=== PATIENT | female | born 1970 | race Caucasian/White ===

== ENCOUNTER 2022-11-02 06:28 | Day surgery (SDC) | payer MEDICAID, SELFPAY ==
[2022-10-09 12:26] VITALS: BMI 37.8
[2022-11-02 06:49] VITALS: BP 142/81; PULSE 86; RESP 16; TEMP 36.1; O2SAT 95
[2022-11-02] MEDS: sodium chloride 0.9% 1,000 ML 30 ML IV (07:04)
[2022-11-02] MEDS: ondansetron 2 mg/ML SDV 2 mL 4 MG IVP (07:07)
[2022-11-02 07:08] LABS: OR HCG Qualitative Urine Negative (Negative)
--- NOTE | 2022-11-02 07:14 | P.ANESASSM_ITS ---
Pre-Anesthetic Assessment Height/Weight: Height 1.55 m Weight 90.718 kg Temp Pulse Resp BP Pulse Ox O2 Del Method 97 F L 86 16 142/81 95 Room Air 11/02/22 06:49 11/02/22 06:49 11/02/22 06:49 11/02/22 06:49 11/02/22 06:49 11/02/22 06:49 Operation Date: 11/02/22 07:30 Proposed Procedures p Colonoscopy 71187,Z12.11(Not Applicable) - Jose Angel Joel DO Familial anesthetic complications: none Was Beta [place] taken within 24 hours: N/A Was Clonidine taken within 24 hours: N/A Last intake: Intake Last Liquid Date 11/01/22 Last Liquid Time 00:00 Last Solid Date 10/31/22 Last Solid Time 21:00 Social Tobacco ( at least a pack a day ) and No alcohol Exam alert and oriented x 3 Airway Submandibular: within normal limits Cervical ROM: within normal limits Mallampati: Class III Dentition: false History/ROS No significant history except as noted Pulmonary Chronic Obstructive Pulmonary Disease and Exertional Dyspnea CV/HEM None reported None reported Hepatic None reported GI Gastroesophageal Reflux Disease Metabolic Morbid Obesity [facility] None reported Neuropsych None reported Anesthetic Plan ASA status: 3 Anesthesia: Anesthesia Evaluation, General and MAC Medications/Allergies Home Medications Medication Instructions Recorded Confirmed Last Taken Type acetaminophen 500 mg tablet 500 mg PO Q6H PRN Pain 08/31/22 11/02/22 Unknown History (Tylenol Extra Strength) ibuprofen 200 mg tablet 200 mg PO Q6H PRN Pain 08/31/22 11/02/22 Unknown History sertraline 100 mg tablet (Zoloft) 100 mg PO DAILY 08/31/22 11/02/22 11/01/22 History montelukast 10 mg tablet 10 mg PO DAILY PRN Allergy Symptoms 10/09/22 11/02/22 Unknown History Allergies Allergy/AdvReac Type Severity Reaction Status Date / Time erythromycin base Allergy ADR-Nausea Verified 11/02/22 06:46 Current Medications Generic Name Dose Route Start Last Admin Trade Name Freq PRN Reason Stop Dose Admin Sodium Chloride 1,000 mls @ 30 mls/hr 11/02/22 06:30 11/02/22 07:04 Sodium Chloride 0.9% IV 11/03/22 06:29 30 mls/hr .Q24H SHILO Administration Ondansetron HCl 4 mg 11/02/22 06:30 11/02/22 07:07 Ondansetron 2 Mg/Ml Sdv 2 Ml IVP 4 mg Q15M PRN Administration Nausea/Vomiting PACU PHASE II Data Anesthesia Cardiac Studies: No Data to Display
--- NOTE | 2022-11-02 07:45 | PM.HP ---
Providers/Chief Complaint Primary Care Provider: MARY Crouch Chief Complaint: Z12.11 History of Present Illness Jennifer Stein is a 52 year old female here for her first colon cancer screening. She had an uncle with colon cancer but otherwise has no family history of colon cancer. She does report some bright red blood per rectum at times. Denies any abdominal pain, nausea, emesis, diarrhea and/or melena. She does think she gets constipated sometimes but has a bowel movement every day Medications/Allergies Home Medications Medication Instructions Recorded Confirmed Last Taken Type acetaminophen 500 mg tablet 500 mg PO Q6H PRN Pain 08/31/22 11/02/22 Unknown History (Tylenol Extra Strength) ibuprofen 200 mg tablet 200 mg PO Q6H PRN Pain 08/31/22 11/02/22 Unknown History sertraline 100 mg tablet (Zoloft) 100 mg PO DAILY 08/31/22 11/02/22 11/01/22 History montelukast 10 mg tablet 10 mg PO DAILY PRN Allergy Symptoms 10/09/22 11/02/22 Unknown History Allergies Allergy/AdvReac Type Severity Reaction Status Date / Time erythromycin base Allergy ADR-Nausea Verified 11/02/22 06:46 Vitals/I&O/Wt Last Vital Signs Temp 97 F L 11/02/22 06:49 Pulse 86 11/02/22 06:49 Resp 16 11/02/22 06:49 BP 142/81 11/02/22 06:49 Pulse Ox 95 11/02/22 06:49 O2 Del Method Room Air 11/02/22 06:49 A&P Assessment and plan (1) Colon cancer screening: Plan Screening colonoscopy The risks and benefits of the procedure, including bleeding, infection, intestinal perforation requiring surgery, missed lesion were explained to the patient. The patient is understanding of the risks and wishes to proceed. Attestations Medical Necessity Statement*: Home Coding Level of Care Code Acute Code for Chg Fwd Diagnoses Colon cancer screening Z12.11
[2022-11-02 08:28] VITALS: BP 107/71; PULSE 88; RESP 16; TEMP 36.1; O2SAT 97
[2022-11-02 08:40] VITALS: BP 116/80; PULSE 78; RESP 16; O2SAT 97
--- NOTE | 2022-11-02 08:50 | ANE.PACU2 ---
Inpatient post-anesthesia follow up: Airway intact: Yes Vital signs: Temperature 97 F Pulse Rate 78 Respiratory Rate 16 Blood Pressure 116/80 Pulse Oximetry 97 Oxygen Delivery Me thod Room Air Oxygen Flow Rate Fraction of Inspir ed Oxygen Hydration adequate: Yes Nausea and vomiting: No Pain level: 1 Mental status: Baseline
[2022-11-07 15:40] LABS: Mismatch Repari Proteins-IHC See Report
== END 2022-11-02 09:11 | disposition home or self-care (01) ==
PROVIDERS: Anesthesiology; PCP Nurse Practitioner Family; Visit Provider Surgery
PROC: 0DJD8ZZ Inspection of Lower Intestinal Tract, Via Natural or Artificial Opening Endoscopic (ICD-10-PCS; CPT 45378; principal; 2022-11-02 07:30)
DX: Z12.11 Encounter for screening for malignant neoplasm of colon (principal); C20 Malignant neoplasm of rectum; F17.210 Nicotine dependence, cigarettes, uncomplicated; J44.9 Chronic obstructive pulmonary disease, unspecified; K21.9 Gastro-esophageal reflux disease without esophagitis; E66.01 Morbid (severe) obesity due to excess calories; Z68.37 Body mass index [BMI] 37.0-37.9, adult
CPT/HCPCS: 45385; 45388; 81025; 84703; 88305; 88341; 88342; 96374; J2405; J2704; J7030

== ENCOUNTER 2022-12-05 09:46 | Outpatient (CLI) | payer MEDICAID, SELFPAY ==
--- NOTE | 2022-12-05 10:15 | MRR_ITS ---
PROCEDURE INFORMATION: Exam: MR Pelvis Without and With Contrast Exam date and time: 12/05/2022 10:29 AM Age: 52 years old Clinical indication: Condition or disease; Location of cancer or specific organ: Cancerous polyps from colonoscopy; Prior surgery; Surgery date: 6+ months; Surgery type: Tubal c section; Additional info: Staging rectal cancer TECHNIQUE: Imaging protocol: Magnetic resonance imaging of the pelvis without and with contrast. Contrast material: MULTIHANCE; Contrast volume: 19 ml; Contrast route: INTRAVENOUS (IV); COMPARISON: No relevant prior studies available. FINDINGS: Intraperitoneal space: No free fluid. Reproductive: Unremarkable right ovary measuring 3.9 x 3.2 x 2.2 cm. Small cyst measuring 2.2 cm noted in the right ovary. Unremarkable left ovary measuring 3.9 x 2.6 x 1.1 cm. Enlarged uterus measuring 13.0 x 9.1 x 9.9 cm. There are 2 large intramural fibroids. The largest fibroid in the anterior wall measures approximally 10.3 x 8.6 x 9.0 cm. The 2nd fibroid along the fundus measures approximately 6.4 x 4.9 x 5.4 cm. The endometrial cavity is displaced posteriorly and superiorly. Nabothian cysts noted. Lymph nodes: No lymphadenopathy. Bones/joints: Degenerative changes of the spine seen. Soft tissues: Unremarkable. Stomach and bowel: No rectal mass identified. MR/MR pelvis wo/w con [id number] IMPRESSION: 1. No rectal mass identified. 2. Uterine fibroids.
== END 2022-12-05 09:47 | disposition home or self-care (01) ==
PROVIDERS: PCP Nurse Practitioner Family; Visit Provider Internal Medicine Medical Oncology
DX: C20 Malignant neoplasm of rectum (principal); D25.9 Leiomyoma of uterus, unspecified; Z98.890 Other specified postprocedural states
CPT/HCPCS: 72197; A9577

== ENCOUNTER 2022-12-13 09:12 | Oncology outpatient (recurring) (ONCR) | payer MEDICAID, SELFPAY | END 2022-12-20 23:59 | disposition home or self-care (01) | LOC: ONCMED 09:13 | PROVIDERS: PCP Nurse Practitioner Family; Visit Provider Internal Medicine Medical Oncology | DX: Z53.9 Procedure and treatment not carried out, unspecified reason (principal) | CPT/HCPCS: 77427 ==

== ENCOUNTER 2023-03-28 07:46 | Day surgery (SDC) | payer MEDICAID, SELFPAY ==
[2023-03-28] VITALS (8 sets, daily range): BP systolic 106–127; BP diastolic 53–77; PULSE 82–99; RESP 17–18; TEMP 36.1–36.2; O2SAT 95–99; BMI 33.6
--- NOTE | 2023-03-28 07:49 | XR_ITS ---
WS: [id number] Portable AP upright chest, 03/28/2023 Clinical Data: Postop Mediport placement Comparison: None. Findings: The infusion catheter enters the left subclavian vein and ends in the superior vena cava. N o nodules, masses or effusions are seen. The heart is normal. The pulmonary vascularity is not increa sed. No pneumonia or pneumothorax is seen. Impression: Satisfactory placement of left infusion catheter.
--- NOTE | 2023-03-28 07:49 | SC_ITS ---
WS: [id number] Insertion left Mediport, 03/28/2023 Clinical Data: Mediport placement Comparison: None. Findings: Dr. Joel inserted a left Mediport through the left subclavian vein ending in the superior vena ca va. Impression: Left Mediport insertion.
[2023-03-28] MEDS: sodium chloride 0.9% 1,000 ML 30 ML IV (08:17)
--- NOTE | 2023-03-28 08:34 | P.ANESASSM_ITS ---
Pre-Anesthetic Assessment Height/Weight: Height 1.55 m Weight 80.739 kg Temp Pulse Resp BP Pulse Ox O2 Del Method 97 F L 82 18 126/72 99 Room Air 03/28/23 07:57 03/28/23 07:57 03/28/23 07:57 03/28/23 07:57 03/28/23 07:57 03/28/23 08:06 Operation Date: 03/28/23 09:35 Proposed Procedures p [id number] port placement C20(Not Applicable) - Jose Angel Joel DO Familial anesthetic complications: none Was Beta [place] taken within 24 hours: N/A Was Clonidine taken within 24 hours: N/A Last intake: Intake Last Liquid Date 03/27/23 Last Liquid Time 23:55 Last Solid Date 03/27/23 Last Solid Time 19:00 Social Tobacco and No alcohol Exam alert, oriented x 3 and regular rate & rhythm Airway Submandibular: within normal limits Cervical ROM: within normal limits Mallampati: Class II Dentition: false Pulmonary Chronic Obstructive Pulmonary Disease GI Colon CA Neuropsych Anxiety and Depression Anesthetic Plan ASA status: 2 Anesthesia: MAC Medications/Allergies Home Medications Medication Instructions Recorded Confirmed Last Taken Type acetaminophen 500 mg tablet 500 mg PO Q6H PRN Pain 08/31/22 03/27/23 Unknown History (Tylenol Extra Strength) ibuprofen 200 mg tablet 200 mg PO Q6H PRN Pain 08/31/22 03/27/23 Unknown History sertraline 100 mg tablet (Zoloft) 100 mg PO DAILY 08/31/22 03/27/23 03/27/23 History calcium carbonate 200 mg calcium 200 mg PO BID PRN Acid Reflux 12/13/22 03/27/23 Unknown History (500 mg) chewable tablet (Tums) hydrocodone 5 mg-acetaminophen 325 1 tab PO Q4H PRN Pain 03/13/23 03/27/23 03/06/23 History mg tablet Allergies Allergy/AdvReac Type Severity Reaction Status Date / Time erythromycin base Allergy ADR-Nausea Verified 03/27/23 13:05 Current Medications Generic Name Dose Route Start Last Admin Trade Name Freq PRN Reason Stop Dose Admin Sodium Chloride 1,000 mls @ 30 mls/hr 03/28/23 08:00 03/28/23 08:17 Sodium Chloride 0.9% IV 03/29/23 07:59 30 mls/hr .Q24H SHILO Administration PFSH Anesthesia Medical History Anxiety and depression Rectal cancer Surgical History (Updated 03/26/23 @ 11:02 by Jose Angel Joel DO) History of total hysterectomy with bilateral salpingo-oophorectomy (BSO) (02/22/23) Robotic assisted total laparoscopic hysterectomy and bilateral salpingo- oophorectomy History of low anterior resection of rectum (02/22/23) Robotic assisted low anterior resection with diverting loop ileostomy History of section History of tubal ligation 1991 History of colonoscopy 2022 Family History Daughter Clotting disorder Platelet disorder Father CAD (coronary artery disease) Cancer in his ear Family/Other Cancer Uncle - colon Aunt - unknown kind Grandmother Cancer unknown Brother Lung disease Other Diabetes Hyperlipidemia Hypertension Stroke Denies family history of Dementia Psychiatric illness Chronic kidney disease (CKD) Suicide Anesthesia complication Bleeding disorder Social History Smoking and tobacco/nicotine status: current every day tobacco/nicotine user cigarettes Packs smoked per day: 1 Years cigarettes smoked: 37 [ Other cigarette details: 1 or more packs per day.] Data Anesthesia Cardiac Studies: No Data to Display
--- NOTE | 2023-03-28 09:24 | W.PM.OPSUD ---
Surgery/Procedure H&P Update DATE OF PROCEDURE: March 28, 2023 DATE H&P PERFORMED: 03/26/23 H&P UPDATE INFORMATION: I have reviewed H&P completed within last 30 days, I have examined patient prior to procedure and No changes to prior documentation PLANNED PROCEDURE: Operation Date: 03/28/23 09:35 Proposed Procedures p [id number] port placement C20(Not Applicable) - Jose Angel Joel DO
[2023-03-28] MEDS: ceFAZolin 2,000 MG in sodium chloride 0.9% (plus) 50 ML 100 MG IV (10:20)
--- NOTE | 2023-03-28 10:51 | PM.OP ---
Operative Report Date of procedure: March 28, 2023 Pre-op diagnosis: Rectal cancer Post-op diagnosis: same Procedure done: Mediport placement Implants: PowerPort Specimens removed/disposition: none Surgeon: Jose Angel Joel DO Anesthesia: MAC and Local Estimated blood loss (mL): 5 Complications: None apparent Brief History: Patient with rectal cancer needs Mediport for chemotherapy access. Risk benefits were explained and documented. Procedure: They put another order I will do right now things the patient was taken to the operating room and placed supine on the operating room table. All bony prominences were padded. She was given IV sedation and monitored throughout the case by the anesthesia personnel. SCDs were placed and turned on. The arms were tucked to the side. Patient received Ancef 2 g preoperatively IV. The bilateral chest wall was prepped and draped in usual sterile fashion using chlorhexidine base prep. Sterile drapes were applied. We did procedure pause prior to beginning. An 18 gauge needle was placed in the left subclavian vein. Dark, nonpulsatile blood was aspirated. A guidewire was placed through the needle centrally toward the atrial/vena caval junction. Fluoroscopy visualized good placement. The needle was removed and the guidewire was clipped to the drape with a hemostat. Further local anesthetic was infiltrated in the soft tissues of the left chest wall and a #15 blade was used to make a horizontal skin incision. A subcutaneous Mediport pocket was created using Bovie cautery, dissecting down through the skin and subcutaneous tissues. Meticulous hemostasis was achieved. The Mediport was sutured in position using 3-0 vicryl suture x2 stitches. A #15 blade was used to make a small skin lindsey around the guidewire insertion area. The Mediport tubing was tunneled through the subcutaneous tissues up to the needle insertion location. A dilator with a peel-away sheath was placed over the guidewire and placed centrally. After measuring the Mediport tubing was cut to length so that the tip would end at the atrial/vena caval junction. The inner cannula and the guidewire were removed, leaving the dilator sheath in place. The Mediport was flushed. The tip of the catheter was inserted through the peel-away sheath and the peel-away sheath removed in the standard fashion. The Mediport was accessed with a straight Flores needle and dark, nonpulsatile blood was aspirated and flushed using heparinized saline to hep-lock the Mediport. Final fluoroscopy visualization showed no kink in the catheter and the tip of the Mediport tubing near the atrial/vena caval junction. Both skin incisions were thoroughly irrigated and suctioned dry. Meticulous hemostasis noted. The dermis was approximated with 3-0 Vicryl in an interrupted fashion. Skin was closed with Dermabond. Patient was awakened from anesthesia and transferred via her cart to the recovery room in stable condition. All needle, sponge, and instrument counts were correct per the operating personnel x2 counts.
[2023-03-28] MEDS: lidocaine-epi 2% 20 mL INJ INJECTION (10:52)
[2023-03-28] MEDS: heparin, porcine 1,000 unit/mL INJ 10 mL 10000 UNIT INJECTION (10:53)
--- NOTE | 2023-03-28 15:46 | ANE.PACU2 ---
Inpatient post-anesthesia follow up: Airway intact: Yes Vital signs: Temperature 97 F Pulse Rate 95 Respiratory Rate 18 Blood Pressure 127/77 Pulse Oximetry 95 Oxygen Delivery Me thod Room Air Oxygen Flow Rate Fraction of Inspir ed Oxygen Hydration adequate: Yes Nausea and vomiting: No Pain level: 2 Mental status: Baseline
== END 2023-03-28 12:35 | disposition home or self-care (01) ==
PROVIDERS: PCP Nurse Practitioner Family; Visit Provider Surgery
PROC: (CPT 36561; principal; 2023-03-28 09:25)
DX: C20 Malignant neoplasm of rectum (principal); J44.9 Chronic obstructive pulmonary disease, unspecified; F17.210 Nicotine dependence, cigarettes, uncomplicated
CPT/HCPCS: 36561; 71045; 76000; 77001; C1788; J0690; J1644; J2704; J3010; J7030

== ENCOUNTER 2023-04-19 10:30 | Oncology outpatient (recurring) (ONCR) | payer MEDICAID, SELFPAY ==
[2023-04-02 07:44] VITALS: BP 133/85; PULSE 87; RESP 16; TEMP 36.2; O2SAT 99
[2023-04-02 08:06] LABS: Basophils % 0.4 %; Eosinophils # 0.2 10^3/uL (0.0-0.8); Eosinophils % 3.9 %; Hematocrit 38.1 % (36-47); Lymphocytes # 1.1 10^3/uL (0.8-4.8); Lymphocytes % 24.8 %; Mean Corpuscular HGB Conc 31.2 g/dL (30-55); Mean Corpuscular Hemoglobin 27.1 pg (27-33); Mean Corpuscular Volume 86.8 fl (85-98); Mean Platelet Volume 10.2 fL (7.4-10.4); Monocytes # 0.4 10^3/uL (0.2-0.9); Monocytes % 9.2 %; Neutrophils % 61.5 %; Nucleated Red Blood Cells % 0 %; Platelet Count 202 10^3/cmm (157-399); Red Blood Count 4.39 10^6/uL (3.85-5.65); Red Cell Distribution Width 14.6 % (12.1-15.1); White Blood Count 4.56 10^3/uL (3.29-11.43)
[2023-04-02 08:27] LABS: Carcinoembryonic Antigen 0.8 ng/mL (0.0-4.7)
[2023-04-02 08:38] LABS: Alanine Aminotransferase 13 U/L (0-33); Albumin Level 4.2 g/dL (3.5-5.2); Alkaline Phosphatase 141 U/L (35-105); Anion Gap 15.3 (5-19); Aspartate Amino Transferase 14 U/L (0-32); Blood Urea Nitrogen 10 mg/dL (6-20); Calcium 9.6 mg/dL (8.5-10.5); Carbon Dioxide 26 mmol/L (22-29); Chloride 102 mmol/L (98-107); Glomerular Filtration Rate 104.2 mL/min (90-130); Glucose 89 mg/dL (65-115); Osmolality Calculated 287 mOsm/kg (285-295); Potassium 4.3 mmol/L (3.5-5.1); Sodium 139 mmol/L (136-145); Total Bilirubin 0.3 mg/dL (0.15-1.2); Total Protein 7.2 g/dL (6.6-8.7)
[2023-04-02] MEDS: dextrose 5% 250 ML 75 ML IV (10:38)
[2023-04-02] MEDS: palonosetron 0.25 mg/5 mL SDV IVP (10:50)
[2023-04-02] MEDS: leucovorin 730 MG in dextrose 5% 250 ML 62.5 MG IV (11:20)
[2023-04-02] MEDS: fluorouraciL 4,350 MG, elastomeric pump 1 PUMP in sodium chloride 0.9% (100 ml) 5 ML IV (14:08)
[2023-04-02 14:12] VITALS: BP 125/77; PULSE 87; RESP 16; TEMP 36.3; O2SAT 98
[2023-04-04 13:00] VITALS: BP 109/70; PULSE 84; RESP 17; TEMP 36.6; O2SAT 97
[2023-04-04] MEDS: sodium chloride 0.9% 1,000 ML 999 ML IV (13:18)
[2023-04-04] MEDS: ondansetron 2 mg/ML SDV 2 mL 8 MG IVP (13:22)
[2023-04-04 15:10] VITALS: BP 101/69; PULSE 80; RESP 17; O2SAT 99
[2023-04-10 10:37] VITALS: BP 124/83; PULSE 96; RESP 16; TEMP 35.9; O2SAT 97
[2023-04-10 10:56] LABS: Basophils % 0.5 %; Eosinophils # 0.1 10^3/uL (0.0-0.8); Hematocrit 40.6 % (36-47); Lymphocytes # 0.9 10^3/uL (0.8-4.8); Mean Corpuscular HGB Conc 32.5 g/dL (30-55); Mean Corpuscular Hemoglobin 27.2 pg (27-33); Mean Corpuscular Volume 83.5 fl (85-98); Mean Platelet Volume 10.4 fL (7.4-10.4); Monocytes # 0.2 10^3/uL (0.2-0.9); Monocytes % 4.4 %; Neutrophils # 2.49 10^3/uL (1.8-7.7); Neutrophils % 67.8 %; Nucleated Red Blood Cells % 0 %; Platelet Count 177 10^3/cmm (157-399); Red Blood Count 4.86 10^6/uL (3.85-5.65); Red Cell Distribution Width 14.1 % (12.1-15.1); White Blood Count 3.67 10^3/uL (3.29-11.43)
[2023-04-10 11:15] LABS: Alanine Aminotransferase 58 U/L (0-33); Albumin Level 4.6 g/dL (3.5-5.2); Alkaline Phosphatase 148 U/L (35-105); Aspartate Amino Transferase 29 U/L (0-32); Blood Urea Nitrogen 18 mg/dL (6-20); Calcium 9.7 mg/dL (8.5-10.5); Carbon Dioxide 26 mmol/L (22-29); Chloride 102 mmol/L (98-107); Globulin 3.4 g/dL (1.3-4.6); Glomerular Filtration Rate 74.7 mL/min (90-130); Glucose 104 mg/dL (65-115); Osmolality Calculated 288 mOsm/kg (285-295); Sodium 138 mmol/L (136-145); Total Bilirubin 0.4 mg/dL (0.15-1.2)
[2023-04-16 08:01] VITALS: BP 130/79; PULSE 90; RESP 16; TEMP 36.1; O2SAT 96
[2023-04-16 08:27] LABS: Basophils % 0.8 %; Eosinophils # 0.2 10^3/uL (0.0-0.8); Eosinophils % 4.7 %; Hematocrit 40.4 % (36-47); Lymphocytes % 27.6 %; Mean Corpuscular HGB Conc 30.9 g/dL (30-55); Mean Corpuscular Hemoglobin 26.8 pg (27-33); Mean Corpuscular Volume 86.5 fl (85-98); Mean Platelet Volume 11.3 fL (7.4-10.4); Monocytes # 0.4 10^3/uL (0.2-0.9); Monocytes % 11.4 %; Neutrophils # 1.99 10^3/uL (1.8-7.7); Neutrophils % 55.5 %; Nucleated Red Blood Cells % 0 %; Platelet Count 190 10^3/cmm (157-399); Red Blood Count 4.67 10^6/uL (3.85-5.65); Red Cell Distribution Width 14.8 % (12.1-15.1); White Blood Count 3.59 10^3/uL (3.29-11.43)
[2023-04-16 08:55] LABS: Alanine Aminotransferase 27 U/L (0-33); Albumin Level 4.4 g/dL (3.5-5.2); Alkaline Phosphatase 143 U/L (35-105); Anion Gap 18.2 (5-19); Aspartate Amino Transferase 17 U/L (0-32); Blood Urea Nitrogen 13 mg/dL (6-20); Calcium 9.7 mg/dL (8.5-10.5); Carbon Dioxide 21 mmol/L (22-29); Chloride 102 mmol/L (98-107); Globulin 3.1 g/dL (1.3-4.6); Glomerular Filtration Rate 87.2 mL/min (90-130); Glucose 90 mg/dL (65-115); Osmolality Calculated 284 mOsm/kg (285-295); Potassium 4.2 mmol/L (3.5-5.1); Sodium 137 mmol/L (136-145); Total Bilirubin 0.3 mg/dL (0.15-1.2); Total Protein 7.5 g/dL (6.6-8.7)
[2023-04-16] MEDS: dextrose 5% 250 ML 75 ML IV (09:25)
[2023-04-16] MEDS: alteplase 1 mg/mL SDV 2 mL 2 MG INTRACATH (09:53)
[2023-04-16] MEDS: palonosetron 0.25 mg/5 mL SDV IVP (10:42)
[2023-04-16] MEDS: fosaprepitant 150 MG in sodium chloride 0.9% 50 ML, sodium chloride 0.9% (100 ml) 100 ML 300 MG IV (10:48)
[2023-04-16] MEDS: leucovorin 730 MG in dextrose 5% 250 ML 80.75 MG IV (12:06)
[2023-04-16] MEDS: fluorouraciL 4,350 MG, elastomeric pump 1 PUMP in sodium chloride 0.9% (100 ml) 5 ML IV (15:11)
[2023-04-16 15:12] VITALS: BP 119/64; PULSE 78; RESP 18; TEMP 36.1; O2SAT 96
[2023-04-18 13:05] VITALS: BP 105/67; PULSE 69; RESP 16; TEMP 36.2; O2SAT 98
[2023-04-19] MEDS: sodium chloride 0.9% 1,000 ML 999 ML IV (10:52)
[2023-04-19] MEDS: ondansetron 2 mg/ML SDV 2 mL 8 MG IVP (11:28)
[2023-04-19 12:28] VITALS: BP 150/73; PULSE 98; RESP 16; TEMP 36.6; O2SAT 99
== END 2023-04-21 23:59 | disposition home or self-care (01) ==
PROVIDERS: Nurse Practitioner Family; PCP Nurse Practitioner Family; Visit Provider Internal Medicine Medical Oncology
DX: C20 Malignant neoplasm of rectum (principal); Z95.828 Presence of other vascular implants and grafts; Z53.9 Procedure and treatment not carried out, unspecified reason
CPT/HCPCS: 36591; 36593; 80053; 82378; 85025; 96360; 96365; 96367; 96368; 96374; 96375; 96413; 96415; 96416; 96417; 96523; J0640; J1100; J1453; J1642; J2405; J2469; J2997; J7030; J7060; J9190; J9263

== ENCOUNTER 2023-05-22 11:00 | Oncology outpatient (recurring) (ONCR) | payer MEDICAID, SELFPAY ==
[2023-05-01 08:51] VITALS: PULSE 80; RESP 16; TEMP 36.1; O2SAT 100
[2023-05-01 09:13] LABS: Basophils % 0.6 %; Eosinophils % 0.3 %; Hematocrit 37.7 % (36-47); Lymphocytes # 0.9 10^3/uL (0.8-4.8); Lymphocytes % 29.7 %; Mean Corpuscular HGB Conc 32.1 g/dL (30-55); Mean Corpuscular Hemoglobin 26.9 pg (27-33); Mean Corpuscular Volume 83.8 fl (85-98); Mean Platelet Volume 11.4 fL (7.4-10.4); Monocytes # 0.4 10^3/uL (0.2-0.9); Monocytes % 13.9 %; Neutrophils # 1.76 10^3/uL (1.8-7.7); Neutrophils % 55.5 %; Nucleated Red Blood Cells % 0 %; Platelet Count 144 10^3/cmm (157-399); Red Cell Distribution Width 15.4 % (12.1-15.1); White Blood Count 3.17 10^3/uL (3.29-11.43)
[2023-05-01 09:30] LABS: Alanine Aminotransferase 18 U/L (0-33); Albumin Level 3.9 g/dL (3.5-5.2); Alkaline Phosphatase 129 U/L (35-105); Anion Gap 14.3 (5-19); Aspartate Amino Transferase 13 U/L (0-32); Blood Urea Nitrogen 12 mg/dL (6-20); Calcium 9.5 mg/dL (8.5-10.5); Carbon Dioxide 22 mmol/L (22-29); Chloride 104 mmol/L (98-107); Glomerular Filtration Rate 74.7 mL/min (90-130); Glucose 95 mg/dL (65-115); Osmolality Calculated 282 mOsm/kg (285-295); Potassium 4.3 mmol/L (3.5-5.1); Sodium 136 mmol/L (136-145); Total Bilirubin 0.2 mg/dL (0.15-1.2); Total Protein 6.9 g/dL (6.6-8.7)
[2023-05-01] MEDS: sodium chloride 0.9% 1,000 ML 999 ML IV (10:25)
[2023-05-08 09:27] LABS: Basophils % 0.9 %; Eosinophils # 0.1 10^3/uL (0.0-0.8); Eosinophils % 3.1 %; Hematocrit 36.1 % (36-47); Lymphocytes # 0.9 10^3/uL (0.8-4.8); Mean Corpuscular HGB Conc 32.1 g/dL (30-55); Mean Corpuscular Hemoglobin 26.8 pg (27-33); Mean Corpuscular Volume 83.4 fl (85-98); Mean Platelet Volume 10.1 fL (7.4-10.4); Monocytes # 0.4 10^3/uL (0.2-0.9); Monocytes % 11.3 %; Neutrophils # 1.85 10^3/uL (1.8-7.7); Neutrophils % 56.8 %; Nucleated Red Blood Cells % 0 %; Platelet Count 220 10^3/cmm (157-399); Red Blood Count 4.33 10^6/uL (3.85-5.65); Red Cell Distribution Width 15.9 % (12.1-15.1); White Blood Count 3.26 10^3/uL (3.29-11.43)
[2023-05-08 09:42] LABS: Alanine Aminotransferase 10 U/L (0-33); Albumin Level 3.8 g/dL (3.5-5.2); Alkaline Phosphatase 125 U/L (35-105); Anion Gap 15.3 (5-19); Aspartate Amino Transferase 12 U/L (0-32); Blood Urea Nitrogen 6 mg/dL (6-20); Calcium 9.2 mg/dL (8.5-10.5); Carbon Dioxide 25 mmol/L (22-29); Chloride 105 mmol/L (98-107); Globulin 2.9 g/dL (1.3-4.6); Glomerular Filtration Rate 87.2 mL/min (90-130); Glucose 87 mg/dL (65-115); Osmolality Calculated 289 mOsm/kg (285-295); Potassium 4.3 mmol/L (3.5-5.1); Sodium 141 mmol/L (136-145); Total Bilirubin 0.2 mg/dL (0.15-1.2); Total Protein 6.7 g/dL (6.6-8.7)
[2023-05-22 11:56] LABS: Basophils # 0.1 10^3/uL (0.0-0.1); Basophils % 0.8 %; Eosinophils # 0.2 10^3/uL (0.0-0.8); Eosinophils % 2.4 %; Hematocrit 37.4 % (36-47); Lymphocytes # 1.1 10^3/uL (0.8-4.8); Lymphocytes % 17.2 %; Mean Corpuscular HGB Conc 32.4 g/dL (30-55); Mean Corpuscular Hemoglobin 26.8 pg (27-33); Mean Corpuscular Volume 82.7 fl (85-98); Mean Platelet Volume 9.6 fL (7.4-10.4); Monocytes # 0.4 10^3/uL (0.2-0.9); Monocytes % 6.7 %; Neutrophils % 72.3 %; Nucleated Red Blood Cells % 0 %; Platelet Count 209 10^3/cmm (157-399); Red Blood Count 4.52 10^6/uL (3.85-5.65); Red Cell Distribution Width 16.8 % (12.1-15.1); White Blood Count 6.23 10^3/uL (3.29-11.43)
[2023-05-22 12:15] LABS: Alanine Aminotransferase 9 U/L (0-33); Albumin Level 3.9 g/dL (3.5-5.2); Alkaline Phosphatase 143 U/L (35-105); Anion Gap 16.1 (5-19); Aspartate Amino Transferase 12 U/L (0-32); Blood Urea Nitrogen 10 mg/dL (6-20); Calcium 9.3 mg/dL (8.5-10.5); Carbon Dioxide 21 mmol/L (22-29); Chloride 102 mmol/L (98-107); Globulin 3.2 g/dL (1.3-4.6); Glomerular Filtration Rate 104.2 mL/min (90-130); Glucose 96 mg/dL (65-115); Osmolality Calculated 279 mOsm/kg (285-295); Potassium 4.1 mmol/L (3.5-5.1); Sodium 135 mmol/L (136-145); Total Bilirubin 0.2 mg/dL (0.15-1.2); Total Protein 7.1 g/dL (6.6-8.7)
== END 2023-05-22 23:59 | disposition home or self-care (01) ==
PROVIDERS: Nurse Practitioner Family; PCP Nurse Practitioner Family; Visit Provider Internal Medicine Medical Oncology
DX: Z53.9 Procedure and treatment not carried out, unspecified reason (principal); C20 Malignant neoplasm of rectum
CPT/HCPCS: 36591; 80053; 85025; 96360; J1642; J7030

== ENCOUNTER 2023-08-15 12:00 | Oncology outpatient (recurring) (ONCR) | payer MEDICAID, SELFPAY ==
[2023-07-24 09:16] LABS: Basophils % 0.7 %; Eosinophils # 0.2 10^3/uL (0.0-0.8); Eosinophils % 5.2 %; Hematocrit 37.6 % (36-47); Lymphocytes # 1.1 10^3/uL (0.8-4.8); Lymphocytes % 25.5 %; Mean Corpuscular HGB Conc 32.2 g/dL (30-55); Mean Corpuscular Hemoglobin 29.2 pg (27-33); Mean Corpuscular Volume 90.8 fl (85-98); Mean Platelet Volume 10.1 fL (7.4-10.4); Monocytes # 0.3 10^3/uL (0.2-0.9); Monocytes % 7.5 %; Neutrophils % 60.9 %; Nucleated Red Blood Cells % 0 %; Platelet Count 169 10^3/cmm (157-399); Red Blood Count 4.14 10^6/uL (3.85-5.65); Red Cell Distribution Width 22.5 % (12.1-15.1); White Blood Count 4.27 10^3/uL (3.29-11.43)
[2023-07-24 09:45] LABS: Carcinoembryonic Antigen 1.3 ng/mL (0.0-4.7)
[2023-07-24 09:56] LABS: Alanine Aminotransferase 8 U/L (0-33); Albumin Level 4.1 g/dL (3.5-5.2); Alkaline Phosphatase 120 U/L (35-105); Aspartate Amino Transferase 14 U/L (0-32); Blood Urea Nitrogen 13 mg/dL (6-20); Calcium 9.1 mg/dL (8.5-10.5); Carbon Dioxide 24 mmol/L (22-29); Chloride 108 mmol/L (98-107); Globulin 2.8 g/dL (1.3-4.6); Glomerular Filtration Rate 87.2 mL/min (90-130); Glucose 92 mg/dL (65-115); Osmolality Calculated 292 mOsm/kg (285-295); Sodium 141 mmol/L (136-145); Total Bilirubin 0.3 mg/dL (0.15-1.2); Total Protein 6.9 g/dL (6.6-8.7)
[2023-07-24 09:58] LABS: Anion Gap 13.4 (5-19); Potassium 4.4 mmol/L (3.5-5.1)
[2023-08-15 12:47] LABS: Basophils % 0.8 %; Eosinophils # 0.2 10^3/uL (0.0-0.8); Eosinophils % 3.5 %; Hematocrit 39.1 % (36-47); Lymphocytes # 1.2 10^3/uL (0.8-4.8); Lymphocytes % 25.3 %; Mean Corpuscular HGB Conc 32.7 g/dL (30-55); Mean Corpuscular Hemoglobin 30.8 pg (27-33); Mean Platelet Volume 10.2 fL (7.4-10.4); Monocytes # 0.3 10^3/uL (0.2-0.9); Monocytes % 6.8 %; Neutrophils # 3.04 10^3/uL (1.8-7.7); Neutrophils % 63.2 %; Nucleated Red Blood Cells % 0 %; Platelet Count 187 10^3/cmm (157-399); Red Blood Count 4.16 10^6/uL (3.85-5.65); Red Cell Distribution Width 21.3 % (12.1-15.1); White Blood Count 4.82 10^3/uL (3.29-11.43)
[2023-08-15 13:50] LABS: Alanine Aminotransferase 6 U/L (0-33); Albumin Level 4.3 g/dL (3.5-5.2); Alkaline Phosphatase 129 U/L (35-105); Anion Gap 13.8 (5-19); Aspartate Amino Transferase 11 U/L (0-32); Blood Urea Nitrogen 10 mg/dL (6-20); Calcium 9.3 mg/dL (8.5-10.5); Carbon Dioxide 26 mmol/L (22-29); Chloride 104 mmol/L (98-107); Creatinine Clr Calc Pharmacy 74.6209; Globulin 3.3 g/dL (1.3-4.6); Glomerular Filtration Rate 74.7 mL/min (90-130); Glucose 111 mg/dL (65-115); Osmolality Calculated 290 mOsm/kg (285-295); Potassium 3.8 mmol/L (3.5-5.1); Sodium 140 mmol/L (136-145); Total Bilirubin 0.3 mg/dL (0.15-1.2); Total Protein 7.6 g/dL (6.6-8.7)
== END 2023-08-20 23:59 | disposition home or self-care (01) ==
PROVIDERS: PCP Nurse Practitioner Family; Visit Provider Internal Medicine Medical Oncology
DX: Z53.9 Procedure and treatment not carried out, unspecified reason (principal); C20 Malignant neoplasm of rectum
CPT/HCPCS: 36415; 80053; 82378; 85025

== ENCOUNTER 2023-09-05 08:45 | Oncology outpatient (recurring) (ONCR) | payer MEDICAID, SELFPAY ==
[2023-09-05 09:35] LABS: Basophils # 0.1 10^3/uL (0.0-0.1); Basophils % 1.5 %; Eosinophils # 0.2 10^3/uL (0.0-0.8); Hematocrit 47.2 % (36-47); Lymphocytes # 1.2 10^3/uL (0.8-4.8); Lymphocytes % 24.5 %; Mean Corpuscular HGB Conc 29.7 g/dL (30-55); Mean Corpuscular Hemoglobin 31.1 pg (27-33); Mean Corpuscular Volume 104.9 fl (85-98); Mean Platelet Volume 10.1 fL (7.4-10.4); Monocytes # 0.4 10^3/uL (0.2-0.9); Monocytes % 8.9 %; Neutrophils # 2.89 10^3/uL (1.8-7.7); Neutrophils % 59.9 %; Nucleated Red Blood Cells % 0 %; Platelet Count 200 10^3/cmm (157-399); Red Cell Distribution Width 20.9 % (12.1-15.1); White Blood Count 4.82 10^3/uL (3.29-11.43)
== END 2023-09-20 23:59 | disposition home or self-care (01) ==
PROVIDERS: Nurse Practitioner Family; PCP Nurse Practitioner Family; Visit Provider Internal Medicine Medical Oncology
DX: C20 Malignant neoplasm of rectum (principal)
CPT/HCPCS: 36415; 85025

== ENCOUNTER 2023-10-14 11:30 | Oncology outpatient (recurring) (ONCR) | payer MEDICAID, SELFPAY ==
--- NOTE | 2023-10-03 09:30 | CT_ITS ---
WS: [id number] CT CHEST, ABDOMEN, AND PELVIS TECHNIQUE: Contrast-enhanced CT of the chest, abdomen, and pelvis with coronal and sagittal reformatt ed images. CLINICAL INFORMATION: restaging COMPARISON: None. DLP: 828.[address] scans at [facility] use at least one of these dose optimization techniques: automated e xposure control; mA and/or kV adjustment per patient size (includes targeted exams where dose is matc hed to clinical indication); or iterative reconstruction. CT CHEST: Lungs are well aerated. No acute pulmonary infiltrates. No focal pneumonia or pleural fluid. Normal c aliber thoracic aorta. Proximal main pulmonary arteries appear normal. Normal caliber descending thor acic aorta. Normal caliber abdominal aorta. No mediastinal or hilar lymphadenopathy. No axillary lymphadenopathy. Small esophageal hiatal hernia. Small RIGHT thyroid nodule measuring [address] ABDOMEN AND PELVIS:Expansile elongated slightly expansile filling defect in the LEFT ovarian vein extending from proximal to the mid vein compatible with recent gonadal vein thrombus. Small amount o f surrounding induration distally suspicious for thrombophlebitis. LEFT renal vein and IVC are patent . Chronic spondylolysis L5-S1 with grade 1-2 anterolisthesis. Mild diffuse fatty infiltration of the li jennifer. 2 small low-attenuation lesions in the LEFT hepatic lobe largest measuring 9 mm compatible with hepatic cyst. The smaller lesion at 5 mm too small to definitively characterize. Recommend 3-month fo llow-up contrast-enhanced CT abdomen pelvis. Mild splenomegaly measuring 13.7 cm [id number]. Mild hepatomegaly. Small esophageal hernia. Normal portal vein and splenic vein. Normal gallbladder. Celiac and SMA are patent. Mild aortic calcification. Adrenal glands are normal. Normal renal parenc hymal enhancement. Tiny renal cysts. No abdominal or pelvic lymphadenopathy. Ileostomy RIGHT lower quadrant. Prior postoperative changes rectal anastomosis. Tiny amount of free fluid in the pelvis. No evidence of recurrent mass or lesion at the anastomosis. Ileostomy and stoma are patent. CT/CT chest abdpel w/*[id number] IMPRESSION: 1. No suspicious chest abnormalities. 2. Small RIGHT thyroid nodule measuring 5 mm. 3. Mild hepatomegaly and splenomegaly 4. Small LEFT hepatic cyst measuring 9 mm. Additional low-attenuation lesion a lso likely represents a cyst but too small to definitively characterize measuri ng 5 mm. This can be followed up in 3 months with contrast-enhanced CT abdomen pelvis. 5. Ileostomy appears patent. 6. Rectal anastomosis. No evidence of recurrent disease at the anastomosis. 7. 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 LEFT carly l vein appears patent. Recommend correlation with anticoagulation status and hi story of pulmonary embolism 8. Chronic spondylolysis L5 on S1 with grade 1-[address] Watkins at 10/04/2023 10:36 AM.
[2023-10-03] MEDS: iohexol 350 mg/mL 500 mL Btl (per mL) IV (10:21)
[2023-10-03] MEDS: iohexol 350 mg/mL 500 mL Btl (per mL) PO (10:21)
[2023-10-14 11:49] LABS: Basophils # 0.1 10^3/uL (0.0-0.1); Eosinophils # 0.2 10^3/uL (0.0-0.8); Eosinophils % 2.8 %; Hematocrit 40.5 % (36-47); Lymphocytes # 1.4 10^3/uL (0.8-4.8); Lymphocytes % 24.8 %; Mean Corpuscular HGB Conc 32.1 g/dL (30-55); Mean Corpuscular Hemoglobin 29.2 pg (27-33); Mean Platelet Volume 10.1 fL (7.4-10.4); Monocytes # 0.4 10^3/uL (0.2-0.9); Monocytes % 7.1 %; Neutrophils # 3.73 10^3/uL (1.8-7.7); Neutrophils % 64.1 %; Nucleated Red Blood Cells % 0 %; Platelet Count 243 10^3/cmm (157-399); Red Blood Count 4.45 10^6/uL (3.85-5.65); Red Cell Distribution Width 16.9 % (12.1-15.1); White Blood Count 5.81 10^3/uL (3.29-11.43)
[2023-10-14 12:18] LABS: Carcinoembryonic Antigen 1.2 ng/mL (0.0-4.7)
[2023-10-14 12:41] LABS: Alanine Aminotransferase 7 U/L (0-33); Albumin Level 4.2 g/dL (3.5-5.2); Alkaline Phosphatase 134 U/L (35-105); Anion Gap 16.5 (5-19); Aspartate Amino Transferase 11 U/L (0-32); Blood Urea Nitrogen 10 mg/dL (6-20); Calcium 9.2 mg/dL (8.5-10.5); Carbon Dioxide 23 mmol/L (22-29); Chloride 103 mmol/L (98-107); Globulin 3.2 g/dL (1.3-4.6); Glomerular Filtration Rate 87.2 mL/min (90-130); Glucose 87 mg/dL (65-115); Osmolality Calculated 284 mOsm/kg (285-295); Potassium 4.5 mmol/L (3.5-5.1); Sodium 138 mmol/L (136-145); Total Bilirubin 0.2 mg/dL (0.15-1.2); Total Protein 7.4 g/dL (6.6-8.7)
== END 2023-10-20 23:59 | disposition home or self-care (01) ==
PROVIDERS: PCP Nurse Practitioner Family; Visit Provider Nurse Practitioner Family
DX: C20 Malignant neoplasm of rectum (principal); Z53.9 Procedure and treatment not carried out, unspecified reason
CPT/HCPCS: 36415; 71260; 74177; 80053; 82378; 85025; Q9967

== ENCOUNTER 2023-11-20 10:38 | Oncology outpatient (recurring) (ONCR) | payer MEDICAID, SELFPAY ==
--- NOTE | 2023-10-28 15:45 | N.ONRAD NP_ITS ---
Radiation Oncology New Patient Visit Patient: Jennifer Stein MR#: [id number] : 1970> Age: 53> Sex: Female> Account #: Dictated by: Velasquez Wayne DO/MICHELINE/KAMARI Date of Service: 10/28/2023 Referring Physician(s) : Andre Watkins M.D. , Yogi Billy MD, Stacey Jolly, MARY Diagnosis: C20 Rectal Cancer, C77.[address] HISTOPATHOLOGY: MD-ADENOCARCINOMA distal rectum, initially treated with transanal microsurgery for the rectal polyp stage T2 NX, followed by robotic assisted LAR with diverting loop ileostomy with residual focus of MD-adenocarcinoma, 1.6 cm, with extension into pericolonic fat measuring 0.17 mm, + CLSI, - PNI, radial margin > 1.5 cm, peripheral margin at least 1 cm, 08/07 LN + (-RICKIE), - tumor deposit, 2/8 cycles FOLFOX- LD 04/16/2023 followed by 6 cycles of Xeloda 14 days on 7 days off for total 21-day cycle, LD- 09/06/2023, 30# Wt loss, Minimal bleeding, , CEA 10/14/2023 1.2, 38pysh, Fatigue, Moderate Treatment anxiety. STAGE: III- [id number] Radiotherapy to date: Summary > NO prior radiation therapy. Chief Complaint: Patient has rectal cancer and is here to discuss adjuvant XRT. History of Present Illness: This is a pleasant 53-year-old female with a diagnosis of rectal cancer as noted above. She initially presented back in the summer 2022 with some intermittent rectal bleeding. Colonoscopy on 11/02/2022 noted multiple polyps in the distal rectum with a large polyp returning well-differentiated adenocarcinoma. Patient underwent transanal surgery with excision of the polyp which returned a pathologic stage and T2 NX M0. Patient underwent laparoscopic robotic assisted LAR with placement of a diverting loop colostomy. She also underwent ZIA/BSO. Pathology of the hysterectomy specimen was benign. The rectal component showed residual focus of adenocarcinoma with extension into pericolic pericolonic fat measuring 0.167 mm. Rectal mass itself measured 1.6 cm. There was 4 out of 18 lymph nodes involved with no areas of extracapsular extension. Pathologic staging was noted to be T3 N2a M0. Adjuvant chemotherapy consisted of 2/8 cycles of FOLFOX with the last dose being 04/16/2023. She then underwent 6 cycles of Xeloda consisting of twice daily treatment for 14 days followed by 7-day break. The last cycle was on 09/06/2023. No availability of preoperative CEA. CEA on 10/14/[address] C/A/P on 10/03/2023 showed no evidence for recurrent or metastatic disease. There was an expansile while elongated thrombus involving the left ovarian vein extending from the proximal to mid vein with a small amount of surrounding thrombophlebitis. She was started on Eliquis and remains on that at the present time. Current Medications: cetaminophen (Tylenol Extra Strength) 500 mg PO Q6H PRNapixaban (Eliquis) 5 mg PO BIDcalcium carbonate (Tums) 200 mg PO BID PRNdexamethasone 1 tablet BID x2 days, then 1 tab daily x2 days after chemotherapydronabinol (Marinol) 5 mg PO BIDhydrocodone-acetaminophen 5-325 mg 1 tab PO Q4H PRNibuprofen 200 mg PO Q6H PRNlidocaine-prilocaine 2.5-2.5 % Apply quarter size amount 30-45 minutes prior to port access, cover with cellophanelorazepam 0.5 - 1 mg (0.5 - 1 x 1 mg) PO Q6H PRNondansetron 8 mg PO Q8H PRNprochlorperazine maleate (Compazine) 10 mg PO Q6H PRNsertraline (Zoloft) 100 mg PO DAILY Allergies: erythromycin base Allergy (Verified 10/14/23 12:46) ADR-Nausea Medical History: No history of collagen vascular disease. No previous radiation therapy. Patient is ACTIVE SMOKER with [id number] smoking history. Surgical History: History of total hysterectomy with bilateral salpingo-oophorectomy (BSO) (02/22/23) Robotic assisted total laparoscopic hysterectomy and bilateral salpingo-oophorectomy History of low anterior resection of rectum (02/22/23) Robotic assisted low anterior resection with diverting loop ileostomy History of sectionHistory of tubal ligation 1991 History of colonoscopy 2022 Port-A-Cath in place Family History: Daughter Clotting disorder Platelet disorder Father CAD (coronary artery disease) Cancer in his ear Family/Other Cancer Uncle - colon Aunt - unknown kind Grandmother Cancer unknown Brother Lung disease Other Diabetes Hyperlipidemia Hypertension Stroke Denies family history of Dementia Psychiatric illness Chronic kidney disease (CKD) Suicide Anesthesia complication Bleeding disorder Social History: Smoking and tobacco/nicotine status: current every day tobacco/nicotine user cigarettes. ONE Pack smoked per day: 1 Years cigarettes smoked: 38 [ Other cigarette details: 1 or more packs per day.] Current Complaints / Review of Systems: . ABOVE Vital Signs: Performed on 10/28/2023 11:13 AM BMI - 30.459 kg/m2 (high), Height - 61 in, Weight - 161.2 lbs, Temperature - 97.4 f, Pulse - 81 /min, Respiration - 17 /min, O2 Sat - 100 %, Pain - 0, Fatigue - 0 and BP - 115/ 76 mm(hg). Physical Exam: 53-year-old female who is alert and oriented and answers questions appropriately. She is quite anxious. Head is normocephalic without masses. Neck is supple with no cervical lymphadenopathy. Chest: lungs clear to auscultation. No intercostal retraction. Abdomen: soft with no rebound. Ileostomy noted just right of midline. Surgical scar appreciated. Extremities intact x 4. Negative Homans' sign. Vertebral exam: no bony tenderness noted. Rectal exam: deferred per patient's request. Performance Status: KPS 90 Pathology: ABOVE Imaging: See HPI Impression: MD-ADENOCARCINOMA distal rectum Initially treated with transanal microsurgery for the rectal polyp stage T2 NX Robotic assisted LAR with diverting loop ileostomy with residual focus of MD-adenocarcinoma, 1.6 cm, with extension into pericolonic fat measuring 0.17 mm + CLSI - PNI Radial margin > 1.5 cm, Peripheral margin at least 1 cm 08/07 LN + (-RICKIE) - tumor deposit 2/8 cycles FOLFOX- LD 04/16/2023 6 cycles of Xeloda 14 days on 7 days off for total 21-day cycle, LD- 09/06/2023 30# Wt loss Minimal bleeding CEA 10/14/2023 1.2 38pysh Fatigue Moderate Treatment anxiety Plan: Options were discussed in detail with the patient Patient desires to think about adjuvant chemo RT at this time. She will convey her decision in the next few weeks. Adjuvant XRT was recommended at 4500 cGy in conventional fractionation along with radiosensitizing doses of Xeloda Signed by: 10/28/2023 3:43:59 PM <<Signature on File>> Time spent with patient: 65 minutes CPT Code: CPT Code:
--- NOTE | 2023-11-12 08:36 | ONCRAD EPV_ITS ---
Radiation Oncology Established Patient Note Patient: Jennifer Stein MR#: [id number] : 1970 Attending Physician: Dr. Angelita Bravo Date of Service: 11/11/2023 Referring Physician(s) : Andre Watkins M.D. 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 Review of Systems: Patient is here today prior to starting treatment as she had several questions that were still not answered after she had her initial encounter. She was initially somewhat opposed to proceeding with additional treatment. She had felt initially that her treatment was done backwards. I reassured her that in the past patients were actually treated with surgery first followed by postop radiation and chemotherapy. That this treatment was no different in terms of cure rates it just allowed us to delineate patients that did not require radiation and chemotherapy. We reviewed again the risks and side effects of the radiation both acute and long-term. We discussed the simulation process. We reviewed the daily treatment regiment. At this point she has agreed to proceed with treatment. All of her questions were answered. I gave her a list of items to get that we will help her proceed with managing her symptoms as we go through treatment. Physical Exam: Unchanged Imaging: Radiation therapy imaging related to accurate target localization (i.e. KV, MV and CBCT) was reviewed. Appropriate changes, if any, were made to ensure treatment accuracy. Plan: Will schedule her for simulation and wait to start her treatments until she is received her Xeloda. Time spent with patient: 30 CPT Code: CPT Code:
--- NOTE | 2023-11-19 13:21 | ONCRAD TMN_ITS ---
Radiation Oncology Weekly Treatment Management Patient: Jennifer Stein MR#: [id number] : 1970 Attending Physician: Dr. Angelita Bravo Date of Service: 11/19/2023 Fractions: 1 out of 25 Referring Physician(s) : Andre Watkins M.D. 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 ID: [id number], Energy: 6X, Dose/Fx (cGy): 180, #Fx: , Dose Correction (cGy): 0, Total Dose Delivered (cGy): 180, Start Date: 11/19/2023, Elapsed Days: 0 Reason for visit: The patient is being seen today as part of their regularly scheduled weekly on treatment visits to assess for acute toxicities from radiotherapy. Review of Systems: Patient had no additional questions. We did talk about some different things she can try to eat as her taste has been affected as it was previously by the is a [place] Vital Signs: Performed on 11/19/2023 11:14 AM BMI - 30.27 kg/m2 (high), Height - 61 in, Weight - 160.2 lbs, Temperature - 97.5 f, Pulse - 78 /min, Respiration - 18 /min, O2 Sat - 98 %, Pain - 0, Fatigue - 0 and BP - 113/ 70 mm(hg). Physical Exam: No changes on exam Imaging: Radiation therapy imaging related to accurate target localization (i.e. KV, MV and CBCT) was reviewed. Appropriate changes, if any, were made to ensure treatment accuracy. Plan: Will continue with treatments as planned signed by: Dr. Angelita Bravo 11/19/2023 1:19:21 PM
== END 2023-11-20 23:59 | disposition home or self-care (01) ==
PROVIDERS: PCP Nurse Practitioner Family; Visit Provider Nurse Practitioner Family
DX: Z51.0 Encounter for antineoplastic radiation therapy (principal); C77.5 Secondary and unspecified malignant neoplasm of intrapelvic lymph nodes; C20 Malignant neoplasm of rectum
CPT/HCPCS: 77300; 77301; 77334; 77338; 77386; 77470; 99024

== ENCOUNTER 2023-12-09 10:30 | Oncology outpatient (recurring) (ONCR) | payer MEDICAID, SELFPAY ==
--- NOTE | 2023-11-25 11:21 | ONCRAD TMN_ITS ---
Radiation Oncology Weekly Treatment Management Patient: Sarita Suárez MR#: [id number] : 1970> Attending Physician: Dr. Angelita Bravo Date of Service: 11/25/2023 Fractions: 5 out of 25 Referring Physician(s) : Andre Watkins M.D. 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 ID: [id number], Energy: 6X, Dose/Fx (cGy): 180, #Fx: , Dose Correction (cGy): 0, Total Dose Delivered (cGy): 900, Start Date: 11/19/2023, Elapsed Days: 6 Reason for visit: The patient is being seen today as part of their regularly scheduled weekly on treatment visits to assess for acute toxicities from radiotherapy. Review of Systems: Patient had increased difficulty with nausea and vomiting last week she vomited at least 4 times on Saturday. She has started to contemplate taking her Xeloda after her treatment in the morning as her nausea medicine makes her sleepy. She drives herself and has no one else to drive her. Vital Signs: Performed on 11/25/2023 11:09 AM BMI - 29.476 kg/m2 (high), Height - 61 in, Weight - 156 lbs, Temperature - 96.8 f, Pulse - 90 /min, Respiration - 17 /min, O2 Sat - 96 %, Pain - 0 and BP - 131/ 81 mm(hg). Physical Exam: No changes on exam Imaging: Radiation therapy imaging related to accurate target localization (i.e. KV, MV and CBCT) was reviewed. Appropriate changes, if any, were made to ensure treatment accuracy. Plan: I have asked her to go ahead and give that a try with changing up when she takes the Xeloda. Will move her appointment earlier in the morning so that she can get home earlier to take the medication and her nausea medication. Apparently she had significant toxicity from this a lot of the last time and was on multiple nausea medications. She is currently just using the Zofran. Signed by: Dr. Angelita Bravo 11/25/2023 11:20:30 AM
[2023-11-28 10:18] LABS: Basophils % 0.7 %; Eosinophils # 0.4 10^3/uL (0.0-0.8); Eosinophils % 7.6 %; Hematocrit 49.1 % (36-47); Lymphocytes # 0.9 10^3/uL (0.8-4.8); Lymphocytes % 16.3 %; Mean Corpuscular Volume 87.8 fl (85-98); Monocytes # 0.5 10^3/uL (0.2-0.9); Monocytes % 9.4 %; Neutrophils % 65.5 %; Nucleated Red Blood Cells % 0 %; Platelet Count 245 10^3/cmm (157-399); Red Blood Count 5.59 10^6/uL (3.85-5.65); Red Cell Distribution Width 15.7 % (12.1-15.1); White Blood Count 5.51 10^3/uL (3.29-11.43)
[2023-11-28 10:38] LABS: Carcinoembryonic Antigen 1.2 ng/mL (0.0-4.7)
[2023-11-28 10:49] LABS: Alanine Aminotransferase 12 U/L (0-33); Albumin Level 4.7 g/dL (3.5-5.2); Alkaline Phosphatase 143 U/L (35-105); Anion Gap 20.9 (5-19); Aspartate Amino Transferase 12 U/L (0-32); Blood Urea Nitrogen 42 mg/dL (6-20); Calcium 9.8 mg/dL (8.5-10.5); Carbon Dioxide 13 mmol/L (22-29); Chloride 102 mmol/L (98-107); Globulin 3.5 g/dL (1.3-4.6); Glomerular Filtration Rate 42.7 mL/min (90-130); Glucose 93 mg/dL (65-115); Osmolality Calculated 282 mOsm/kg (285-295); Potassium 4.9 mmol/L (3.5-5.1); Sodium 131 mmol/L (136-145); Total Bilirubin 0.3 mg/dL (0.15-1.2); Total Protein 8.2 g/dL (6.6-8.7)
[2023-11-28] MEDS: sodium chloride 0.9% 1,000 ML 999 ML IV (11:59)
[2023-11-28 12:55] LABS: Magnesium 2.5 mg/dL (1.7-2.3)
[2023-11-28 13:00] VITALS: BP 102/68; PULSE 80; RESP 17; TEMP 36.2; O2SAT 97
[2023-12-02 11:11] VITALS: BP 106/72; PULSE 72; RESP 16; TEMP 36.2; O2SAT 96
[2023-12-02] MEDS: sodium chloride 0.9% 1,000 ML 999 ML IV (11:17)
[2023-12-02] MEDS: ondansetron 2 mg/ML SDV 2 mL 8 MG IVP (11:18)
--- NOTE | 2023-12-03 10:47 | ONCRAD TMN_ITS ---
Radiation Oncology Weekly Treatment Management Patient: Sarita Rodriguez> MR#: [id number] : 1970> Attending Physician: Dr. Angelita Bravo Date of Service: 12/03/2023 Fractions: 10 out of 25 Referring Physician(s) : Andre Watkins M.D. 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 ID: [id number], Energy: 6X, Dose/Fx (cGy): 180, #Fx: , Dose Correction (cGy): 0, Total Dose Delivered (cGy): 1,800, Start Date: 11/19/2023, Elapsed Days: 14 Reason for visit: The patient is being seen today as part of their regularly scheduled weekly on treatment visits to assess for acute toxicities from radiotherapy. Review of Systems: Since Saturday the patient has been unable to keep anything down. Yesterday she got a liter of normal saline along with IV Zofran. She said she is only been able to get an ice chips since yesterday. She is down 4 pounds today. Vital Signs: Performed on 12/03/2023 10:10 AM BMI - 28.796 kg/m2 (high), Height - 61 in, Weight - 152.4 lbs, Temperature - 96.1 f, Pulse - 90 /min, Respiration - 16 /min, O2 Sat - 96 %, Pain - 1, Fatigue - 5 and BP - 107/ 76 mm(hg). Physical Exam: She seems a little bit better on exam today and that she is not so ataxic when she walks. Yesterday she was lightheaded enough that her balance was off. Imaging: Radiation therapy imaging related to accurate target localization (i.e. KV, MV and CBCT) was reviewed. Appropriate changes, if any, were made to ensure treatment accuracy. Plan: I talked with her today about getting a liter of fluid every day this week along with the IV Zofran. She is agreed to this. She says she is just so thirsty and hungry but she cannot keep anything down. She tried 2 ounces of milk yesterday with her medication and this came back up. At this point we will give her fluids all week with her Zofran and hopefully we can break her cycle. Signed by: Dr. Angelita Bravo 12/03/2023 10:46:33 AM
[2023-12-03] MEDS: sodium chloride 0.9% 1,000 ML 999 ML IV (11:04)
[2023-12-03] MEDS: ondansetron 2 mg/ML SDV 2 mL 8 MG IVP (11:04)
[2023-12-03 16:04] VITALS: BP 100/62; PULSE 68; RESP 16; TEMP 36.5; O2SAT 96
[2023-12-04 14:39] LABS: Basophils % 0.7 %; Eosinophils # 0.2 10^3/uL (0.0-0.8); Hematocrit 41.3 % (36-47); Lymphocytes # 0.5 10^3/uL (0.8-4.8); Lymphocytes % 11.3 %; Mean Corpuscular HGB Conc 33.7 g/dL (30-55); Mean Corpuscular Hemoglobin 28.8 pg (27-33); Mean Corpuscular Volume 85.5 fl (85-98); Mean Platelet Volume 10.9 fL (7.4-10.4); Monocytes # 0.3 10^3/uL (0.2-0.9); Monocytes % 6.9 %; Neutrophils # 3.21 10^3/uL (1.8-7.7); Neutrophils % 75.9 %; Nucleated Red Blood Cells % 0 %; Platelet Count 150 10^3/cmm (157-399); Red Blood Count 4.83 10^6/uL (3.85-5.65); Red Cell Distribution Width 15.7 % (12.1-15.1); White Blood Count 4.23 10^3/uL (3.29-11.43)
[2023-12-04] MEDS: sodium chloride 0.9% 1,000 ML 999 ML IV (14:45)
[2023-12-04 14:53] LABS: Alanine Aminotransferase 17 U/L (0-33); Albumin Level 4.5 g/dL (3.5-5.2); Alkaline Phosphatase 134 U/L (35-105); Anion Gap 16.2 (5-19); Aspartate Amino Transferase 16 U/L (0-32); Blood Urea Nitrogen 46 mg/dL (6-20); Calcium 8.7 mg/dL (8.5-10.5); Carbon Dioxide 18 mmol/L (22-29); Chloride 104 mmol/L (98-107); Glomerular Filtration Rate 42.7 mL/min (90-130); Glucose 100 mg/dL (65-115); Osmolality Calculated 290 mOsm/kg (285-295); Potassium 4.2 mmol/L (3.5-5.1); Sodium 134 mmol/L (136-145); Total Bilirubin 0.3 mg/dL (0.15-1.2); Total Protein 7.5 g/dL (6.6-8.7)
[2023-12-04 14:58] LABS: Creatinine Clr Calc Pharmacy 44.2733
[2023-12-04 15:00] VITALS: BP 108/64; PULSE 79; RESP 16; TEMP 36.6; O2SAT 99
[2023-12-05 10:22] VITALS: BP 99/68; PULSE 87; RESP 18; TEMP 36.5; O2SAT 99
[2023-12-05] MEDS: dexamethasone 10 mg/mL INJ 12 MG IVP (11:28)
[2023-12-05] MEDS: sodium chloride 0.9% 1,000 ML 999 ML IV (11:28)
[2023-12-05] MEDS: ondansetron 2 mg/ML SDV 2 mL 8 MG IVP (11:33)
[2023-12-05 12:45] VITALS: BP 124/68; PULSE 78; RESP 18; TEMP 36.6; O2SAT 98
[2023-12-06 09:22] VITALS: BP 98/67; PULSE 74; RESP 16; TEMP 36.4; O2SAT 98
[2023-12-06] MEDS: sodium chloride 0.9% 1,000 ML 999 ML IV (09:51)
[2023-12-06] MEDS: ondansetron 2 mg/ML SDV 2 mL 6 MG IVP (09:51)
[2023-12-06] MEDS: dexamethasone 4 mg/mL INJ 8 MG IVP (10:00)
[2023-12-06 11:10] VITALS: BP 107/72; PULSE 58; RESP 16; TEMP 36.2; O2SAT 100
[2023-12-09] MEDS: sodium chloride 0.9% 1,000 ML 999 ML IV (10:47)
[2023-12-09 11:55] VITALS: BP 106/58; PULSE 75; RESP 16; TEMP 36.5; O2SAT 99
== END 2023-12-09 23:59 | disposition home or self-care (01) ==
PROVIDERS: Nurse Practitioner Family; PCP Nurse Practitioner Family; Visit Provider Nurse Practitioner Family
DX: Z51.0 Encounter for antineoplastic radiation therapy; Z53.9 Procedure and treatment not carried out, unspecified reason; C20 Malignant neoplasm of rectum; Z79.899 Other long term (current) drug therapy
CPT/HCPCS: 36415; 77336; 77386; 80053; 82378; 83735; 85025; 96360; 96365; 96374; 96375; 99024; J1100; J2405; J7030

== ENCOUNTER 2023-12-20 09:51 | Oncology outpatient (recurring) (ONCR) | payer MEDICAID, SELFPAY ==
--- NOTE | 2023-12-10 10:52 | ONCRAD TMN_ITS ---
Radiation Oncology Weekly Treatment Management Patient: Jennifer Stein MR#: [id number] : 1970 Attending Physician: Dr. Angelita Bravo Date of Service: 12/10/2023 Fractions: 15 out of 25 Referring Physician(s) : Andre Watkins M.D. 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 ID: [id number], Energy: 6X, Dose/Fx (cGy): 180, #Fx: 15 / 25, Dose Correction (cGy): 0, Total Dose Delivered (cGy): 2,700, Start Date: 11/19/2023, Elapsed Days: 21 Reason for visit: The patient is being seen today as part of their regularly scheduled weekly on treatment visits to assess for acute toxicities from radiotherapy. Review of Systems: Patient is finally feeling better. She received her last bit of fluid yesterday. She is now eating and drinking more like normal. Vital Signs: Performed on 12/10/2023 10:02 AM BMI - 28.531 kg/m2 (high), Height - 61 in, Weight - 151 lbs, Temperature - 97.6 f, Pulse - 81 /min, Respiration - 18 /min, O2 Sat - 97 %, Pain - 0, Fatigue - 5 and BP - 105/ 70 mm(hg). Physical Exam: Patient's affect appears brighter and she is actually smiling Imaging: Radiation therapy imaging related to accurate target localization (i.e. KV, MV and CBCT) was reviewed. Appropriate changes, if any, were made to ensure treatment accuracy. Plan: Will continue with her treatments as planned. She has 2 weeks remaining. We talked tentatively today about when she would have the colostomy reversed. She does not yet have an appointment with the surgeon set up. Signed by: Dr. Angelita Bravo 12/10/2023 10:50:51 AM
[2023-12-12 09:35] LABS: Basophils % 0.8 %; Eosinophils # 0.5 10^3/uL (0.0-0.8); Eosinophils % 11.4 %; Hematocrit 43.8 % (36-47); Lymphocytes # 0.4 10^3/uL (0.8-4.8); Lymphocytes % 9.3 %; Mean Corpuscular HGB Conc 33.8 g/dL (30-55); Mean Corpuscular Hemoglobin 28.6 pg (27-33); Mean Corpuscular Volume 84.7 fl (85-98); Mean Platelet Volume 10.4 fL (7.4-10.4); Monocytes # 0.4 10^3/uL (0.2-0.9); Monocytes % 7.4 %; Neutrophils # 3.33 10^3/uL (1.8-7.7); Neutrophils % 70.7 %; Nucleated Red Blood Cells % 0 %; Platelet Count 162 10^3/cmm (157-399); Red Blood Count 5.17 10^6/uL (3.85-5.65); Red Cell Distribution Width 15.7 % (12.1-15.1); White Blood Count 4.72 10^3/uL (3.29-11.43)
[2023-12-12 10:03] LABS: Alanine Aminotransferase 11 U/L (0-33); Albumin Level 4.6 g/dL (3.5-5.2); Alkaline Phosphatase 130 U/L (35-105); Anion Gap 21.8 (5-19); Aspartate Amino Transferase 12 U/L (0-32); Blood Urea Nitrogen 40 mg/dL (6-20); Calcium 9.7 mg/dL (8.5-10.5); Carbon Dioxide 14 mmol/L (22-29); Chloride 101 mmol/L (98-107); Globulin 3.3 g/dL (1.3-4.6); Glomerular Filtration Rate 42.7 mL/min (90-130); Glucose 105 mg/dL (65-115); Osmolality Calculated 286 mOsm/kg (285-295); Potassium 3.8 mmol/L (3.5-5.1); Sodium 133 mmol/L (136-145); Total Bilirubin 0.3 mg/dL (0.15-1.2); Total Protein 7.9 g/dL (6.6-8.7)
[2023-12-12] MEDS: sodium chloride 0.9% 1,000 ML 999 ML IV (11:00)
[2023-12-12] MEDS: famotidine 20 mg/2 mL INJ IVP (11:01)
[2023-12-12] MEDS: dexamethasone 10 mg/mL INJ 12 MG IVP (11:05)
[2023-12-12 12:33] VITALS: BP 111/57; PULSE 60; TEMP 35.6; O2SAT 100
[2023-12-13 10:04] VITALS: BP 145/79; PULSE 74; RESP 16; TEMP 36.4; O2SAT 98
[2023-12-13] MEDS: sodium chloride 0.9% 500 ML 999 ML IV (10:22)
[2023-12-13 10:54] VITALS: BP 106/61; PULSE 66; RESP 17; TEMP 36.2; O2SAT 99
--- NOTE | 2023-12-17 10:43 | ONCRAD TMN_ITS ---
Radiation Oncology Weekly Treatment Management Patient: Sarita Suárez MR#: [id number] : 1970> Attending Physician: Dr. Angelita Bravo Date of Service: 12/17/2023 Fractions: 20 out of 25 Referring Physician(s) : Andre Watkins M.D. 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 ID: [id number], Energy: 6X, Dose/Fx (cGy): 180, #Fx: 20 / 25, Dose Correction (cGy): 0, Total Dose Delivered (cGy): 3,600, Start Date: 11/19/2023, Elapsed Days: 28 Reason for visit: The patient is being seen today as part of their regularly scheduled weekly on treatment visits to assess for acute toxicities from radiotherapy. Review of Systems: Patient is feeling much better this week. She is no longer having diarrhea. She is back to eating and drinking normally. Vital Signs: Performed on 12/17/2023 10:11 AM BMI - 28.909 kg/m2 (high), Height - 61 in, Weight - 153 lbs, Temperature - 97 f, Pulse - 78 /min, Respiration - 18 /min, O2 Sat - 100 %, Pain - 0, Fatigue - 1 and BP - 107/ 68 mm(hg). Physical Exam: Patient is in much better spirits. Her color is better. Imaging: Radiation therapy imaging related to accurate target localization (i.e. KV, MV and CBCT) was reviewed. Appropriate changes, if any, were made to ensure treatment accuracy. Plan: Will continue with her treatments as planned. Once she finishes next week we will set her up for a 1 month appointment. After that we will make sure she gets back to her surgeon in [place] Signed by: Dr. Angelita Bravo 12/17/2023 10:42:41 AM
== END 2023-12-21 23:59 | disposition home or self-care (01) ==
PROVIDERS: Nurse Practitioner Family; PCP Nurse Practitioner Family; Visit Provider Nurse Practitioner Family
DX: Z51.0 Encounter for antineoplastic radiation therapy (principal); C20 Malignant neoplasm of rectum
CPT/HCPCS: 36415; 77336; 77386; 80053; 85025; 96360; 96374; 96375; 99024; J1100; J3490; J7030; J7040

== ENCOUNTER 2024-01-15 12:15 | Oncology outpatient (recurring) (ONCR) | payer MEDICAID, SELFPAY ==
--- NOTE | 2023-12-24 11:12 | ONCRAD TMN_ITS ---
Radiation Oncology Weekly Treatment Management Patient: Jennifer Stein MR#: [id number] : 1970 Attending Physician: Dr. Angelita Bravo Date of Service: 12/24/2023 Fractions: 24 out of 25 Referring Physician(s) : Andre Watkins M.D. 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 ID: [id number], Energy: 6X, Dose/Fx (cGy): 180, #Fx: 24 / 25, Dose Correction (cGy): 0, Total Dose Delivered (cGy): 4,320, Start Date: 11/19/2023, Elapsed Days: 35 Reason for visit: The patient is being seen today as part of their regularly scheduled weekly on treatment visits to assess for acute toxicities from radiotherapy. Review of Systems: Patient is doing well. She is eating normally. Her bowel movements have returned to normal form and shape. She is no longer having any nausea or vomiting Vital Signs: Performed on 12/24/2023 10:30 AM BMI - 28.947 kg/m2 (high), Height - 61 in, Weight - 153.2 lbs, Temperature - 96.3 f, Pulse - 76 /min, Respiration - 16 /min, O2 Sat - 99 %, Pain - 0, Fatigue - 0 and BP - 112/ 73 mm(hg). Physical Exam: No changes on exam Imaging: Radiation therapy imaging related to accurate target localization (i.e. KV, MV and CBCT) was reviewed. Appropriate changes, if any, were made to ensure treatment accuracy. Plan: She will receive her last treatment tomorrow. Will see her back in a month coordinating with medical oncology. Signed by: Dr. Angelita Bravo 12/24/2023 11:10:59 AM
--- NOTE | 2023-12-25 13:20 | N.ONRD TS_ITS ---
Radiation Oncology Treatment Summary Patient: Jennifer Stein MR#: [id number] : 1970 Age: 53 Sex: Female Dictated by: Dr. Angelita Bravo Date of Service: 12/25/2023 Referring Physician(s) : Andre Watkins M.D. 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 ID: [id number], Energy: 6X, Dose/Fx (cGy): 180, #Fx: 25 / 25, Dose Correction (cGy): 0, Total Dose Delivered (cGy): 4,500, Start Date: 11/19/2023, End Date: 12/25/2023, Elapsed Days: 36 Clinical Summary: The patient tolerated RT well. She had a terrible time with the Xeloda. She was able to take this after about a week and a half end of treatment. She had intractable nausea and vomiting which took nearly 2 weeks to resolve. Once this had cleared she actually felt well and did quite well after that with just the radiation. Plan: End of treatment today. Continue on the above medication until the skin reaction resolves. Follow up in one month. Signed by: Dr. Angelita Bravo>12/25/2023 1:18:09 PM <<Signature on File>>
[2024-01-15 12:21] LABS: Basophils % 0.8 %; Eosinophils # 0.1 10^3/uL (0.0-0.8); Eosinophils % 2.9 %; Hematocrit 37.7 % (36-47); Lymphocytes # 0.4 10^3/uL (0.8-4.8); Lymphocytes % 9.8 %; Mean Corpuscular HGB Conc 33.7 g/dL (30-55); Mean Corpuscular Volume 86.1 fl (85-98); Mean Platelet Volume 9.3 fL (7.4-10.4); Monocytes # 0.3 10^3/uL (0.2-0.9); Monocytes % 6.6 %; Neutrophils # 3.02 10^3/uL (1.8-7.7); Neutrophils % 79.6 %; Nucleated Red Blood Cells % 0 %; Platelet Count 165 10^3/cmm (157-399); Red Blood Count 4.38 10^6/uL (3.85-5.65); Red Cell Distribution Width 16.6 % (12.1-15.1); White Blood Count 3.79 10^3/uL (3.29-11.43)
[2024-01-15 12:48] LABS: Carcinoembryonic Antigen 1.3 ng/mL (0.0-4.7)
[2024-01-15 12:59] LABS: Alanine Aminotransferase 9 U/L (0-33); Albumin Level 4.1 g/dL (3.5-5.2); Alkaline Phosphatase 116 U/L (35-105); Aspartate Amino Transferase 12 U/L (0-32); Blood Urea Nitrogen 17 mg/dL (6-20); Calcium 9.2 mg/dL (8.5-10.5); Carbon Dioxide 20 mmol/L (22-29); Chloride 102 mmol/L (98-107); Globulin 2.9 g/dL (1.3-4.6); Glomerular Filtration Rate 57.8 mL/min (90-130); Glucose 96 mg/dL (65-115); Osmolality Calculated 279 mOsm/kg (285-295); Sodium 134 mmol/L (136-145); Total Bilirubin 0.2 mg/dL (0.15-1.2)
== END 2024-01-20 23:59 | disposition home or self-care (01) ==
PROVIDERS: Internal Medicine Medical Oncology; PCP Nurse Practitioner Family; Visit Provider Nurse Practitioner Family
DX: Z53.9 Procedure and treatment not carried out, unspecified reason; C20 Malignant neoplasm of rectum
CPT/HCPCS: 36415; 77336; 77386; 80053; 82378; 85025

== ENCOUNTER 2024-04-02 11:52 | Oncology outpatient (recurring) (ONCR) | payer MEDICAID, SELFPAY ==
--- NOTE | 2024-04-02 13:00 | CTR_ITS ---
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 Radiation optimization: All CT scans at this facility use at least one of these dose optimization techniques: automated exposure control; mA and/or kV adjustment per patient size (includes targeted exams where dose is matched to clinical indication); or iterative reconstruction. Contrast material: OMNI 350; Contrast volume: 100 ml; Contrast route: INTRAVENOUS (IV); COMPARISON: CT chest abdpel w/*[id number] 10/03/2023 10:29 AM RADIATION DOSE METRICS: Total DLP (mGy-cm): 514.66 FINDINGS: Liver: Small hepatic cysts. Gallbladder and biliary ducts: Normal. No calcified stones. No ductal dilation. Pancreas: Normal. No ductal dilation. Spleen: Normal. No splenomegaly. Adrenal glands: Normal. No mass. Kidneys and ureters: Normal. No hydronephrosis. Stomach and bowel: Prior surgery in the region of the rectum. A collection of fluid just anterior to the lower sacrum/coccyx is slightly larger than before, currently 3.8 x 2.3 cm, previously 2.6 x 1.7 cm. No Appendix: No evidence of appendicitis. Intraperitoneal space: Unremarkable. No free air. No significant fluid collection. Vasculature: The left ovarian vein is poorly opacified and I cannot either diagnose nor exclude a residual thrombus there. Lymph nodes: Unremarkable. No enlarged lymph nodes. Urinary bladder: Unremarkable as visualized. Reproductive: Hysterectomy. Bones/joints: Bilateral L5 spondylolysis with grade 1 spondylolisthesis. Soft tissues: Unremarkable. CT/CT abdomen pelvis w con* [id number] IMPRESSION: Slightly enlarging postoperative fluid collection anterior to the lower sacrum/coccyx.
[2024-04-02] MEDS: iohexol 350 mg/mL 500 mL Btl (per mL) PO (13:21)
[2024-04-02] MEDS: iohexol 350 mg/mL 500 mL Btl (per mL) IV (13:22)
== END 2024-04-21 23:59 | disposition home or self-care (01) ==
LOC: ONCMED 11:54 → RAD 11:54 → ONCMED 04-03 08:49
PROVIDERS: PCP Nurse Practitioner Family; Visit Provider Nurse Practitioner Family
DX: Z53.9 Procedure and treatment not carried out, unspecified reason (principal); Z51.0 Encounter for antineoplastic radiation therapy; C20 Malignant neoplasm of rectum; C77.5 Secondary and unspecified malignant neoplasm of intrapelvic lymph nodes; Z79.899 Other long term (current) drug therapy
CPT/HCPCS: 74177

== ENCOUNTER 2024-05-14 11:14 | Oncology outpatient (recurring) (ONCR) | payer MEDICAID, SELFPAY ==
[2024-05-14 12:01] LABS: Basophils % 0.7 %; Eosinophils # 0.1 10^3/uL (0.0-0.8); Eosinophils % 4.2 %; Hematocrit 36.2 % (36-47); Lymphocytes # 0.4 10^3/uL (0.8-4.8); Lymphocytes % 14.1 %; Mean Corpuscular HGB Conc 32.6 g/dL (30-55); Mean Corpuscular Hemoglobin 29.4 pg (27-33); Mean Corpuscular Volume 90.3 fl (85-98); Mean Platelet Volume 10.6 fL (7.4-10.4); Monocytes # 0.2 10^3/uL (0.2-0.9); Monocytes % 8.5 %; Neutrophils # 2.05 10^3/uL (1.8-7.7); Neutrophils % 72.1 %; Nucleated Red Blood Cells % 0 %; Platelet Count 170 10^3/cmm (157-399); Red Blood Count 4.01 10^6/uL (3.85-5.65); Red Cell Distribution Width 13.1 % (12.1-15.1); White Blood Count 2.84 10^3/uL (3.29-11.43)
[2024-05-14 12:26] LABS: Carcinoembryonic Antigen 1.5 ng/mL (0.0-4.7)
[2024-05-14 12:37] LABS: Alanine Aminotransferase < 5 U/L (0-33); Alkaline Phosphatase 119 U/L (35-105); Aspartate Amino Transferase 11 U/L (0-32); Blood Urea Nitrogen 15 mg/dL (6-20); Carbon Dioxide 26 mmol/L (22-29); Chloride 100 mmol/L (98-107); Globulin 2.7 g/dL (1.3-4.6); Glomerular Filtration Rate 57.6 mL/min (90-130); Glucose 91 mg/dL (65-115); Osmolality Calculated 284 mOsm/kg (285-295); Sodium 137 mmol/L (136-145); Total Bilirubin 0.3 mg/dL (0.15-1.2); Total Protein 6.7 g/dL (6.6-8.7)
[2024-05-14 14:06] LABS: Reticulocyte % 0.8 % (0.5-2.0)
[2024-05-14 14:25] LABS: Ferritin 14 ng/mL (15-150); Iron 68 ug/dL (37-145); Lactate Dehydrogenase 125 U/L (135-214); Percent Saturation 19.5 % (20-50); Total Iron Binding Capacity 348 mcg/dl; Unsaturated Iron Binding 280 ug/dL (112-347)
[2024-05-14 14:30] LABS: D Dimer 0.61 ug/mLFEU (0-0.59)
[2024-05-14 14:41] LABS: Vitamin B12 310 pg/mL (232-1245)
[2024-05-14 14:48] LABS: Folate Level 4.1 ng/mL (4.8-37.3)
[2024-05-18 14:20] LABS: Soluble Transferrin Receptor 1.37 mg/L (0.76-1.76)
== END 2024-05-22 23:59 | disposition home or self-care (01) ==
PROVIDERS: Internal Medicine; PCP Nurse Practitioner Family; Visit Provider Nurse Practitioner Family
DX: C20 Malignant neoplasm of rectum; D50.9 Iron deficiency anemia, unspecified; Z90.49 Acquired absence of other specified parts of digestive tract; Z53.9 Procedure and treatment not carried out, unspecified reason
CPT/HCPCS: 36415; 80053; 82378; 82607; 82728; 82746; 83010; 83540; 83550; 83615; 84238; 85025; 85045; 85378

== ENCOUNTER 2024-06-04 09:35 | Oncology outpatient (recurring) (ONCR) | payer MEDICAID, SELFPAY ==
[2024-06-04 10:06] LABS: Basophils % 0.9 %; Eosinophils # 0.1 10^3/uL (0.0-0.8); Eosinophils % 3.4 %; Lymphocytes # 0.4 10^3/uL (0.8-4.8); Lymphocytes % 13.8 %; Mean Corpuscular HGB Conc 32.4 g/dL (30-55); Mean Corpuscular Hemoglobin 28.8 pg (27-33); Mean Corpuscular Volume 88.9 fl (85-98); Mean Platelet Volume 10.2 fL (7.4-10.4); Monocytes # 0.3 10^3/uL (0.2-0.9); Monocytes % 8.2 %; Neutrophils # 2.35 10^3/uL (1.8-7.7); Neutrophils % 73.7 %; Nucleated Red Blood Cells % 0 %; Platelet Count 169 10^3/cmm (157-399); Red Blood Count 4.16 10^6/uL (3.85-5.65); Red Cell Distribution Width 13.6 % (12.1-15.1); White Blood Count 3.19 10^3/uL (3.29-11.43)
[2024-06-04 10:07] LABS: Reticulocyte % 1.1 % (0.5-2.0)
[2024-06-04 10:21] LABS: D Dimer 0.67 ug/mLFEU (0-0.59)
[2024-06-04 10:31] LABS: Alanine Aminotransferase 8 U/L (0-33); Alkaline Phosphatase 126 U/L (35-105); Anion Gap 13.9 (5-19); Aspartate Amino Transferase 11 U/L (0-32); Blood Urea Nitrogen 16 mg/dL (6-20); Calcium 9.2 mg/dL (8.5-10.5); Carbon Dioxide 27 mmol/L (22-29); Chloride 103 mmol/L (98-107); Creatinine Clr Calc Pharmacy 62.7897; Ferritin 13 ng/mL (15-150); Globulin 2.6 g/dL (1.3-4.6); Glucose 76 mg/dL (65-115); Homocysteine 35.42 umol/l (0-15); Iron 48 ug/dL (37-145); Lactate Dehydrogenase 125 U/L (135-214); Osmolality Calculated 290 mOsm/kg (285-295); Percent Saturation 13.3 % (20-50); Potassium 3.9 mmol/L (3.5-5.1); Sodium 140 mmol/L (136-145); Total Bilirubin 0.2 mg/dL (0.15-1.2); Total Iron Binding Capacity 359 mcg/dl; Total Protein 6.6 g/dL (6.6-8.7); Unsaturated Iron Binding 311 ug/dL (112-347)
[2024-06-04 10:45] LABS: Vitamin B12 296 pg/mL (232-1245)
[2024-06-04 10:53] LABS: Folate Level 2.9 ng/mL (4.8-37.3)
[2024-06-04 11:10] LABS: Carcinoembryonic Antigen 1.2 ng/mL (0.0-4.7)
[2024-06-08 09:19] LABS: Methylmalonic Acid 348 nmol/L (55-335)
== END 2024-06-19 23:59 | disposition home or self-care (01) ==
PROVIDERS: PCP Nurse Practitioner Family; Visit Provider Internal Medicine
DX: D50.9 Iron deficiency anemia, unspecified (principal); E53.8 Deficiency of other specified B group vitamins; Z85.048 Personal history of other malignant neoplasm of rectum, rectosigmoid junction, and anus; F17.210 Nicotine dependence, cigarettes, uncomplicated; I82.890 Acute embolism and thrombosis of other specified veins; Z92.3 Personal history of irradiation; Z92.21 Personal history of antineoplastic chemotherapy
CPT/HCPCS: 36415; 80053; 82378; 82607; 82728; 82746; 83010; 83090; 83540; 83550; 83615; 83921; 85025; 85045; 85378

== ENCOUNTER 2024-09-03 09:48 | Oncology outpatient (recurring) (ONCR) | payer MEDICAID, SELFPAY ==
[2024-09-03 10:24] LABS: Eosinophils # 0.2 10^3/uL (0.0-0.8); Eosinophils % 5.4 %; Hematocrit 38.9 % (36-47); Lymphocytes # 0.5 10^3/uL (0.8-4.8); Lymphocytes % 15.9 %; Mean Corpuscular HGB Conc 32.1 g/dL (30-55); Mean Corpuscular Hemoglobin 28.8 pg (27-33); Mean Corpuscular Volume 89.6 fl (85-98); Mean Platelet Volume 9.7 fL (7.4-10.4); Monocytes # 0.3 10^3/uL (0.2-0.9); Monocytes % 9.5 %; Neutrophils # 2.02 10^3/uL (1.8-7.7); Neutrophils % 68.2 %; Nucleated Red Blood Cells % 0 %; Platelet Count 152 10^3/cmm (157-399); Red Blood Count 4.34 10^6/uL (3.85-5.65); Red Cell Distribution Width 13.7 % (12.1-15.1); Reticulocyte % 0.9 % (0.5-2.0); White Blood Count 2.96 10^3/uL (3.29-11.43)
[2024-09-03 10:49] LABS: Alanine Aminotransferase 6 U/L (0-33); Alkaline Phosphatase 111 U/L (35-105); Anion Gap 16.2 (5-19); Aspartate Amino Transferase 10 U/L (0-32); Blood Urea Nitrogen 20 mg/dL (6-20); C Reactive Protein 4.1 mg/L (0.0-4.9); Carbon Dioxide 24 mmol/L (22-29); Chloride 104 mmol/L (98-107); Creatinine Clr Calc Pharmacy 64.2057; Ferritin 12 ng/mL (15-150); Globulin 2.7 g/dL (1.3-4.6); Glucose 73 mg/dL (65-115); Iron 58 ug/dL (37-145); Lactate Dehydrogenase 138 U/L (135-214); Osmolality Calculated 291 mOsm/kg (285-295); Percent Saturation 16.3 % (20-50); Potassium 4.2 mmol/L (3.5-5.1); Sodium 140 mmol/L (136-145); Total Bilirubin 0.2 mg/dL (0.15-1.2); Total Iron Binding Capacity 354 mcg/dl; Total Protein 6.7 g/dL (6.6-8.7); Unsaturated Iron Binding 296 ug/dL (112-347)
[2024-09-03 11:03] LABS: Vitamin B12 268 pg/mL (232-1245)
[2024-09-03 11:14] LABS: Carcinoembryonic Antigen 1.6 ng/mL (0.0-4.7)
[2024-09-07 04:44] LABS: Methylmalonic Acid 650 nmol/L (55-335)
== END 2024-09-19 23:59 | disposition home or self-care (01) ==
PROVIDERS: PCP Nurse Practitioner Family; Visit Provider Internal Medicine
DX: Z08 Encounter for follow-up examination after completed treatment for malignant neoplasm (principal); Z85.048 Personal history of other malignant neoplasm of rectum, rectosigmoid junction, and anus; D50.9 Iron deficiency anemia, unspecified; Z95.828 Presence of other vascular implants and grafts; F17.210 Nicotine dependence, cigarettes, uncomplicated; R03.0 Elevated blood-pressure reading, without diagnosis of hypertension; Z92.3 Personal history of irradiation; Z92.21 Personal history of antineoplastic chemotherapy
CPT/HCPCS: 36415; 80053; 82378; 82607; 82728; 82746; 83010; 83090; 83540; 83550; 83615; 83921; 85025; 85045; 85378; 86140

== ENCOUNTER 2024-12-03 13:19 | Oncology outpatient (recurring) (ONCR) | payer MEDICAID, SELFPAY ==
[2024-11-25] MEDS: iohexol 350 mg/mL 500 mL Btl (per mL) PO (13:06)
--- NOTE | 2024-11-25 13:30 | CTR_ITS ---
PROCEDURE INFORMATION: Exam: CT Chest With Contrast; Diagnostic Exam date and time: 11/25/2024 1:49 PM Age: 54 years old Clinical indication: Condition or disease; Other: Rectal cancer; Prior surgery; Surgery date: 6+ months; Surgery type: Rectal, hyst, ileostomy with reversal TECHNIQUE: Imaging protocol: Diagnostic computed tomography of the chest with contrast. Radiation optimization: All CT scans at this facility use at least one of these dose optimization techniques: automated exposure control; mA and/or kV adjustment per patient size (includes targeted exams where dose is matched to clinical indication); or iterative reconstruction. Contrast material: OMNI 350; Contrast volume: 100 ml; Contrast route: INTRAVENOUS (IV); COMPARISON: CT chest abdpel w/*[id number] 10/03/2023 10:29 AM RADIATION DOSE METRICS: Total DLP (mGy-cm): 774.65 FINDINGS: Lungs: Unremarkable. No consolidation. No masses. Pleural spaces: Unremarkable. No pneumothorax. No pleural effusion. Heart: Unremarkable. No cardiomegaly. No pericardial effusion. Lymph nodes: Unremarkable. No enlarged lymph nodes. Vasculature: Unremarkable. No aortic aneurysm. Bones/joints: Unremarkable. No acute fracture. Soft tissues: Unremarkable. PROCEDURE INFORMATION: Exam: CT Abdomen And Pelvis With Contrast Exam date and time: 11/25/2024 1:49 PM Age: 54 years old Clinical indication: Condition or disease; Other: Rectal cancer; Prior surgery; Surgery date: 6+ months; Surgery type: Rectal, hyst, ileostomy with reversal TECHNIQUE: Imaging protocol: Computed tomography of the abdomen and pelvis with contrast. Radiation optimization: All CT scans at this facility use at least one of these dose optimization techniques: automated exposure control; mA and/or kV adjustment per patient size (includes targeted exams where dose is matched to clinical indication); or iterative reconstruction. Contrast material: OMNI 350; Contrast volume: 100 ml; Contrast route: INTRAVENOUS (IV); COMPARISON: CT abdomen pelvis w con* [id number] 04/02/2024 1:14 PM RADIATION DOSE METRICS: Total DLP (mGy-cm): 774.65 FINDINGS: Lungs: Lung bases are clear. No pleural effusion. Liver: 2 tiny hepatic cysts are noted. No solid hepatic mass. Gallbladder and biliary ducts: Normal. No calcified stones. No ductal dilation. Pancreas: Normal. No ductal dilation. Spleen: Mild splenomegaly is noted. Adrenal glands: Normal. No mass. Kidneys and ureters: Normal. No hydronephrosis. Stomach and bowel: There is evidence of previous rectal surgery and presacral fibrosis is noted. Appendix: No evidence of appendicitis. Intraperitoneal space: Unremarkable. No free air. No significant fluid collection. Vasculature: Unremarkable. No abdominal aortic aneurysm. Lymph nodes: Unremarkable. No enlarged lymph nodes. Urinary bladder: Unremarkable as visualized. Reproductive: Unremarkable as visualized. Bones/joints: Chronic spondylolisthesis with bilateral pars defect and secondary arthritic changes noted at L5-S1. Soft tissues: Unremarkable. CT/CT chest abdpel w/*[id number] IMPRESSION: 1. No acute findings. 2. There is no evidence of active neoplastic disease. IMPRESSION: 1. There is no evidence of active neoplastic disease. 2. Surgical changes again noted 3. Stable tiny hepatic cysts 4. Stable splenomegaly
[2024-11-25 13:44] LABS: Blood Urea Nitrogen 13 mg/dL (6-20)
[2024-11-25] MEDS: iohexol 350 mg/mL 500 mL Btl (per mL) IV (13:52)
[2024-12-03 13:56] LABS: Hematocrit 39.8 % (36-47); Hemoglobin 13.40 g/dL (11.27-16.99); Mean Corpuscular HGB Conc 33.7 g/dL (30-55); Mean Corpuscular Hemoglobin 29.9 pg (27-33); Mean Corpuscular Volume 88.8 fl (85-98); Nucleated Red Blood Cells % 0 %; Platelet Count 157 10^3/cmm (157-399); Red Blood Count 4.48 10^6/uL (3.85-5.65); White Blood Count 3.50 10^3/uL (3.29-11.43)
[2024-12-03 14:23] LABS: Alanine Aminotransferase 7 U/L (0-33); Albumin Level 4.2 g/dL (3.5-5.2); Alkaline Phosphatase 109 U/L (35-105); Anion Gap 15.6 (5-19); Aspartate Amino Transferase 12 U/L (0-32); Blood Urea Nitrogen 13 mg/dL (6-20); Calcium 9.3 mg/dL (8.5-10.5); Carbon Dioxide 26 mmol/L (22-29); Chloride 103 mmol/L (98-107); Creatinine Clr Calc Pharmacy 57.0000; Ferritin 13 ng/mL (15-150); Globulin 2.8 g/dL (1.3-4.6); Glucose 93 mg/dL (65-115); Iron 77 ug/dL (37-145); Osmolality Calculated 290 mOsm/kg (285-295); Potassium 4.6 mmol/L (3.5-5.1); Sodium 140 mmol/L (136-145); Total Iron Binding Capacity 330 mcg/dl; Total Protein 7.0 g/dL (6.6-8.7); Unsaturated Iron Binding 253 ug/dL (112-347)
[2024-12-03 14:38] LABS: Vitamin B12 260 pg/mL (232-1245)
[2024-12-03 15:24] LABS: Carcinoembryonic Antigen 1.6 ng/mL (0.0-4.7)
== END 2024-12-20 23:59 | disposition home or self-care (01) ==
PROVIDERS: Internal Medicine Medical Oncology; PCP Nurse Practitioner Family; Visit Provider Internal Medicine
DX: Z53.9 Procedure and treatment not carried out, unspecified reason; C20 Malignant neoplasm of rectum
CPT/HCPCS: 36415; 71260; 74177; 80053; 82378; 82565; 82607; 82728; 82746; 83540; 83550; 84520; 85025

== ENCOUNTER 2025-02-10 09:50 | Outpatient (CLI) | payer MEDICAID, SELFPAY ==
--- NOTE | 2025-02-10 10:00 | MM_ITS ---
WS: [id number] BILATERAL SCREENING DIGITAL TOMOSYNTHESIS MAMMOGRAM WITH CAD HISTORY: SCREENING COMPARISON: None available. Bilateral CC and MLO views with tomosynthesis and synthetic mammography submitted. Computer aided detection analyzed. Breast composition: There are scattered areas of fibroglandular density. No suspicious masses, microcalcifications or architectural distortion. MM/MM scr BI tomosynthesis [id number] IMPRESSION: BI-RADS: 1 - Negative. FOLLOW UP: 1 Year Follow-up
== END 2025-02-10 09:51 | disposition home or self-care (01) ==
LOC: MOBLMAM 09:51
PROVIDERS: PCP Nurse Practitioner Family; Visit Provider Nurse Practitioner Family
DX: Z12.31 Encounter for screening mammogram for malignant neoplasm of breast (principal); R92.323 Mammographic fibroglandular density, bilateral breasts
CPT/HCPCS: 77063; 77067

== ENCOUNTER 2025-03-04 11:02 | Oncology outpatient (recurring) (ONCR) | payer MEDICAID, SELFPAY ==
[2025-03-04 11:31] LABS: Hematocrit 41.9 % (36-47); Hemoglobin 14.20 g/dL (11.27-16.99); Mean Corpuscular HGB Conc 33.9 g/dL (30-55); Mean Corpuscular Hemoglobin 31.1 pg (27-33); Mean Corpuscular Volume 91.9 fl (85-98); Nucleated Red Blood Cells % 0 %; Platelet Count 168 10^3/cmm (157-399); Red Blood Count 4.56 10^6/uL (3.85-5.65); White Blood Count 3.52 10^3/uL (3.29-11.43)
[2025-03-04 11:56] LABS: Carcinoembryonic Antigen 1.4 ng/mL (0.0-4.7)
[2025-03-04 12:08] LABS: Alanine Aminotransferase 7 U/L (0-33); Albumin Level 4.4 g/dL (3.5-5.2); Alkaline Phosphatase 122 U/L (35-105); Anion Gap 17.3 (5-19); Aspartate Amino Transferase 13 U/L (0-32); Blood Urea Nitrogen 14 mg/dL (6-20); Calcium 9.3 mg/dL (8.5-10.5); Carbon Dioxide 25 mmol/L (22-29); Chloride 104 mmol/L (98-107); Globulin 2.6 g/dL (1.3-4.6); Glucose 124 mg/dL (65-115); Osmolality Calculated 296 mOsm/kg (285-295); Potassium 4.3 mmol/L (3.5-5.1); Sodium 142 mmol/L (136-145); Total Protein 7.0 g/dL (6.6-8.7)
[2025-03-04 13:30] LABS: Ferritin 22 ng/mL (15-150); Iron 65 ug/dL (37-145); Total Iron Binding Capacity 345 mcg/dl; Unsaturated Iron Binding 280 ug/dL (112-347); Vitamin B12 266 pg/mL (232-1245)
== END 2025-03-21 23:59 | disposition home or self-care (01) ==
PROVIDERS: PCP Nurse Practitioner Family; Visit Provider Internal Medicine
DX: C20 Malignant neoplasm of rectum (principal)
CPT/HCPCS: 36415; 80053; 82378; 82607; 82728; 82746; 83540; 83550; 85025